=== PATIENT | male | born 1985 | race Caucasian/White ===

== ENCOUNTER 2019-11-01 14:47 | Observation (INO) | payer MEDICAID, SELFPAY ==
[2019-11-01] VITALS (13 sets, daily range): BP systolic 126–191; BP diastolic 77–117; PULSE 77–115; RESP 14–23; TEMP 36.4–37.1; O2SAT 92–100; BMI 30.1
[2019-11-01 17:22] LABS: Basophils # 0.2 10^3/uL (0.0-0.1); Basophils % 0.5 %; Eosinophils # 0.1 10^3/uL (0.0-0.8); Eosinophils % 0.4 %; Hematocrit 49.5 % (42.0-52.0); Hemoglobin 16.5 g/dL (11.7-16.6); Lymphocytes # 1.7 10^3/uL (0.8-4.8); Lymphocytes % 5.8 %; Mean Corpuscular HGB Conc 33.3 g/dL (30.0-36.0); Mean Corpuscular Hemoglobin 29.8 pg (28.0-34.0); Mean Corpuscular Volume 89.5 fL (80-94); Mean Platelet Volume 8.6 fL (7.4-10.4); Monocytes # 1.5 10^3/uL (0.2-0.9); Monocytes % 5.4 %; Neutrophils # 24.79 10^3/uL (1.8-7.7); Neutrophils % 87.3 %; Nucleated Red Blood Cells % 0 %; Platelet Count 420 10^3/cmm (130-400); Red Blood Count 5.53 10^6/uL (4.1-5.3); Red Cell Distribution Width 13.2 % (12.1-15.1); White Blood Count 28.4 10^3/uL (4.0-10.0)
[2019-11-01 17:40] LABS: Alanine Aminotransferase 25 U/L (0-41); Albumin Level 4.5 g/dL (3.5-5.2); Alkaline Phosphatase 72 IU/L (40-130); Anion Gap 17.2 (5-19); Aspartate Amino Transferase 38 U/L (0-40); Blood Urea Nitrogen 11 mg/dL (6-20); Calcium 9.4 mg/dL (8.5-10.5); Carbon Dioxide 25 mmol/L (22-29); Chloride 101 mmol/L (98-107); Globulin 3.2 g/dL (1.3-4.6); Glomerular Filtration Rate 98.4 mL/min (90-130); Glucose 130 mg/dL (65-115); Osmolality Calculated 286 mOsm/kg (285-295); Potassium 4.2 mmol/L (3.5-5.1); Sodium 139 mmol/L (136-145); Total Bilirubin 0.4 mg/dL (0.15-1.2); Total Protein 7.7 g/dL (6.6-8.7)
--- NOTE | 2019-11-01 18:13 | CTR_ITS ---
PROCEDURE INFORMATION: Exam: CT Abdomen And Pelvis Without Contrast Exam date and time: 11/01/2019 6:40 PM Age: 33 years old Clinical indication: Abdominal pain; Localized; Right lower quadrant (rlq); Patient HX: C/O rlq/r testicle pain w n/v; Additional info: Right flank pain TECHNIQUE: Imaging protocol: Computed tomography of the abdomen and pelvis without contrast. Radiation optimization: All CT scans at this facility use at least one of these dose optimization techniques: automated exposure control; mA and/or kV adjustment per patient size (includes targeted exams where dose is matched to clinical indication); or iterative reconstruction. COMPARISON: No relevant prior studies available. RADIATION DOSE METRICS: Total DLP (mGy-cm): 985.38 FINDINGS: Mediastinal space: A small hiatal hernia is present. Liver: Unremarkable.No mass. Gallbladder and bile ducts: Normal. No calcified stones. No ductal dilation. Pancreas: Normal. No ductal dilation. Spleen: Normal. No splenomegaly. Adrenals: Normal. No mass. Kidneys and ureters: There is no evidence of hydronephrosis. There is punctate nephrolithiasis. Stomach and bowel: There is no evidence of intestinal perforation or obstruction. The wall of the descending and sigmoid colon is thickened but collapsed. This appearance may reflect lack of distention however mild colitis cannot be excluded. Appendix: The appendix demonstrates marked diffuse distention, consistent with severe acute appendicitis. There are several appendicoliths. Periappendiceal inflammatory changes are noted. Intraperitoneal space: Unremarkable. No free air. No significant fluid collection. Vasculature: Unremarkable.No abdominal aortic aneurysm. Lymph nodes: Unremarkable.No enlarged lymph nodes. Bladder: Unremarkable as visualized. Reproductive: Unremarkable as visualized. Bones/joints: Chronic appearing mild anterior wedging of L2 is noted. No acute fracture. Soft tissues: Unremarkable. CT/CT kidney stone [id number] IMPRESSION: 1. Acute appendicitis. 2. The wall of the descending and sigmoid colon is thickened but collapsed. This appearance may reflect lack of distention however mild colitis cannot be excluded. Radiation Dose CTDIVOL = (mGy): DLP = 985.38 (mGy-cm)
--- NOTE | 2019-11-01 18:13 | USR_ITS ---
PROCEDURE INFORMATION: Exam: US Scrotum Exam date and time: 11/01/2019 6:27 PM Age: 33 years old Clinical indication: Scrotum pain; Additional info: Testicular pain and swelling. History of torsion- patient states he did not have surgery for torsion because it fixed on its own. TECHNIQUE: Imaging protocol: Real-time ultrasound of the scrotum and contents with color Doppler and image documentation. COMPARISON: No relevant prior studies available. FINDINGS: Right testicle: The right testicle is homogeneous in echogenicity but there is markedly increased color flow. The right testicle measures 4.7 x 2.7 x 3.3 cm. No right testicular mass. Left testicle: The left testicle measures 4.5 x 2.8 x 3.2 cm. The left testicle is homogeneous in echogenicity with increased color flow. No left testicular mass. Epididymides: There is a small area of decreased echogenicity with internal echoes in the right epididymis. This measures 6 x 6 x 5 mm in size and may be a proteinaceous epididymal cyst. There is mild increased echogenicity right epididymis compatible with right epididymitis. There is increased color flow left epididymis compatible with left epididymitis. Scrotum: There is a small right hydrocele. There is a small left hydrocele. No varicocele. US/US scrotum [id number] IMPRESSION: 1. Bilateral increased color flow/Doppler flow in both testicles compatible with bilateral orchitis. No torsion. Mild bilateral epididymitis. 2. Small bilateral hydroceles. 3. Hypoechoic area in the right epididymis may be a proteinaceous right epididymal cyst.
--- NOTE | 2019-11-01 18:55 | ED_ITS ---
HPI - Male Genitourinary General: Chief complaint: Urogenital-Male Stated complaint: abd pain Time Seen by Provider: 11/01/19 18:02 Source: patient and family () Mode of arrival: ambulatory Limitations: no limitations History of Present Illness: HPI Narrative: 33-year-old male prior history of testicular torsion presents with right testicular pain and swelling today. He has associated nausea. He presents today for evaluation. He denies any urinary symptoms MD Complaint: testicle pain and testicle swelling Onset (ago): hour(s) (6) Duration: constant and progressively worsening Location: right testicle Radiation: right flank Severity: severe Severity scale (1-10): 10 Quality: sharp Relieving factors: none Exacerbating factors: palpation Associated symptoms: Reports nausea; Deny discharge, dysuria, fevers/chills, hematuria, rash, swelling, urinary incontinence, urinary retention, mass or vomiting Review of Systems General: Reports: 10 or more systems reviewed and unremarkable except in HPI and below Const: Denies: fever(s), chills or body aches Eyes: Denies: change in vision or blurry vision ENMT: Denies: throat pain, enlarged tonsils, odynophagia, hoarseness, mouth pain or swelling of lips/tongue Card: Denies: palpitations, irregular heart rhythm, edema or swelling of feet/ankles Resp: Denies: dyspnea, productive cough or non-productive cough GI: Reports: nausea; Denies: vomiting : Reports: flank pain and testicular pain; Denies: difficulty urinating, dysuria, urinary frequency, urinary urgency, urinary hesitancy, urinary dribbling, difficulty starting urination, change in urine stream, nocturia, oliguria, urinary incontinence or hematuria Musc: Denies: neck pain, back pain or extremity swelling Skin/Breast: Denies: rash, pruritus or erythema Neuro: Denies: headache(s), numbness in extremities or weakness in extremities Endo: Denies: polyuria, polydipsia or tired all the time PFS ED PFSH: Medical History (Updated 11/01/19 @ 20:16 by Brian Peters MD) Anxiety and depression Hypertension Nephrolithiasis I passed 2 stones Surgical History (Updated 11/01/19 @ 20:18 by Brian Peters MD) No significant past surgical history Social History (Updated 11/01/19 @ 20:18 by Brian Peters MD) Smoking and tobacco status: current every day smoker cigarettes Packs smoked per day: 1 Years cigarettes smoked: 17 Alcohol intake: current Alcohol use comment: Occasionally Physical Exam Const: COMMON NORMALS: no acute distress, average body habitus, patient oriented x3, no limitations, healthy appearing, alert and well nourished HENMT: COMMON NORMALS: normocephalic, atraumatic and moist oral mucous membranes HEAD & SCALP: normocephalic and atraumatic Neck/C-Spine: COMMON NORMALS: no meningeal signs and no JVD Resp: COMMON NORMALS: normal respiratory effort, No retractions, No use of accessory muscles, clear to auscultation bilaterally and percussion normal AUSCULTATION: clear to auscultation bilaterally PERCUSSION: percussion normal Cardio: COMMON NORMALS: no JVD, regular rate, regular rhythm, S1 normal heart sound present, S2 normal heart sound present, No gallops present (Cardio), No clicks present (Cardio), No murmurs present (Cardio), No rub (Cardio) and Peripheral pulses 2+ throughout RATE: regular rate RHYTHM: regular rhythm HEART SOUNDS: S1 normal heart sound present and S2 normal heart sound present PERIPHERAL PULSES: Peripheral pulses 2+ throughout GI: COMMON NORMALS: Normal to inspection, nondistended, normoactive bowel sounds present, Soft to palpation, No hepatosplenomegaly present, no masses and no bruits PALPATION: Yes Soft to palpation, Yes Tenderness to palpation present (GI) Details: RLQ and Yes No hepatosplenomegaly present : COMMON NORMALS: Yes no CVA tenderness BLADDER/KIDNEY EXAM: Yes no CVA tenderness MALE GROIN/PERINEUM EXAM: No inguinal lymphadenopathy, No lacerations and No Genital lesions present PENIS: normal penis, circumcised and No Genital lesions present Back/Pelvis: COMMON NORMALS: no CVA tenderness Extremity: COMMON NORMALS: normal to inspection, full ROM, capillary refill normal, no calf tenderness and no pedal edema Neuro: COMMON NORMALS: patient oriented x3 SENSORIUM/ORIENTATION: Yes alert MENINGEAL SIGNS: Yes no meningeal signs Skin: COMMON NORMALS: no rashes or lesions noted, no wounds, turgor normal, no jaundice, no petechiae and no mottling GENERAL SKIN EXAM: no rashes or lesions noted and turgor normal Course Reevaluation(s): Reevaluation #1: Discussed his CT scan findings with him. He has acute appendicitis. With his white cell count being so high I think he needs urgent surgery. He voiced understanding and he is in agreement with the plan will call the surgeon Time: 19:30 Consultations: Consultation #1: Discussed with Dr. Peters. He will come in to see this patient. Time: 19:34 Vital Signs: Vital signs: Vital Signs Temperature 98.2 F 11/01/19 20:55 Pulse Rate 78 11/01/19 20:55 Respiratory Rate 17 11/01/19 20:55 Blood Pressure 140/99 11/01/19 20:55 Pulse Oximetry 100 11/01/19 20:55 MDM - Male MDM Narrative: Medical decision making narrative: 33-year-old male patient who presents to the emergency department with a several hour history of right lower abdominal and right scrotal pain. Ultrasound of his scrotum was negative but a CT scan of his abdomen and pelvis showed acute appendicitis. He was taking to the OR for an appendectomy. Medical Records: Attestation: I reviewed the patient's medical records. Lab Data: Attestation: I reviewed the patient's lab results. Labs: Lab Results 11/01/19 11/01/19 11/01/19 Range/Units 17:18 17:18 19:16 WBC 28.4 H (4.0-10.0) 10^3/ uL RBC 5.53 H (4.1-5.3) 10^6/u L Hgb 16.5 (11.7-16.6) g/dL Hct 49.5 (42.0-52.0) % MCV 89.5 (80-94) fL MCH 29.8 (28.0-34.0) pg MCHC 33.3 (30.0-36.0) g/dL RDW 13.2 (12.1-15.1) % Plt Count 420 H (130-400) 10^3/c mm MPV 8.6 (7.4-10.4) fL Neut % (Auto) 87.3 % Lymph % (Auto) 5.8 % [place] % (Auto) 5.4 % Eos % (Auto) 0.4 % Baso % (Auto) 0.5 % Neut # (Auto) 24.79 H (1.8-7.7) 10^3/u L Lymph # (Auto) 1.7 (0.8-4.8) 10^3/u L [place] # (Auto) 1.5 H (0.2-0.9) 10^3/u L Eos # (Auto) 0.1 (0.0-0.8) 10^3/u L Baso # (Auto) 0.2 H (0.0-0.1) 10^3/u L Nucleated RBC % (a uto) 0 % Nucleated RBCs # 0.0 /100WBC Sodium 139 (136-145) mmol/L Potassium 4.2 (3.5-5.1) mmol/L Chloride 101 (98-107) mmol/L Carbon Dioxide 25 (22-29) mmol/L Anion Gap 17.2 (5-19) BUN 11 (6-20) mg/dL Creatinine 0.9 (0.7-1.2) mg/dL GFR Calculation 98.4 (90-130) mL/min Glucose 130 H (65-115) mg/dL Calculated Osmolal ity 286 (285-295) mOsm/k g Lactic Acid 1.1 (0.5-2.2) mmol/L Calcium 9.4 (8.5-10.5) mg/dL Total Bilirubin 0.4 (0.15-1.2) mg/dL AST 38 (0-40) U/L ALT 25 (0-41) U/L Alkaline Phosphata se 72 (40-130) IU/L Total Protein 7.7 (6.6-8.7) g/dL Albumin 4.5 (3.5-5.2) g/dL Globulin 3.2 (1.3-4.6) g/dL Urine Color (Yellow) Urine Appearance (CLEAR) Urine pH (5-7) Ur Specific Gravit y (1.005-1.030) Urine Protein (Negative) Urine Glucose (UA) (Normal) Urine Ketones (Negative) Urine Blood (Negative) Urine Nitrate (Negative) Urine Bilirubin (NEGATIVE) Urine Urobilinogen (Negative) mg/dL Ur Leukocyte Kaela ase (Negative) Urine RBC (0-2) /hpf Urine WBC (0-5) /hpf Ur Squamous Epith Cells (0-5) Calcium Oxalate Cr ystal /hpf Amorphous Sediment Urine Bacteria (NONE) Hyaline Casts Urine Mucus 11/01/19 Range/Units 19:22 WBC (4.0-10.0) 10^3/ uL RBC (4.1-5.3) 10^6/u L Hgb (11.7-16.6) g/dL Hct (42.0-52.0) % MCV (80-94) fL MCH (28.0-34.0) pg MCHC (30.0-36.0) g/dL RDW (12.1-15.1) % Plt Count (130-400) 10^3/c mm MPV (7.4-10.4) fL Neut % (Auto) % Lymph % (Auto) % [place] % (Auto) % Eos % (Auto) % Baso % (Auto) % Neut # (Auto) (1.8-7.7) 10^3/u L Lymph # (Auto) (0.8-4.8) 10^3/u L [place] # (Auto) (0.2-0.9) 10^3/u L Eos # (Auto) (0.0-0.8) 10^3/u L Baso # (Auto) (0.0-0.1) 10^3/u L Nucleated RBC % (a uto) % Nucleated RBCs # /100WBC Sodium (136-145) mmol/L Potassium (3.5-5.1) mmol/L Chloride (98-107) mmol/L Carbon Dioxide (22-29) mmol/L Anion Gap (5-19) BUN (6-20) mg/dL Creatinine (0.7-1.2) mg/dL GFR Calculation (90-130) mL/min Glucose (65-115) mg/dL Calculated Osmolal ity (285-295) mOsm/k g Lactic Acid (0.5-2.2) mmol/L Calcium (8.5-10.5) mg/dL Total Bilirubin (0.15-1.2) mg/dL AST (0-40) U/L ALT (0-41) U/L Alkaline Phosphata se (40-130) IU/L Total Protein (6.6-8.7) g/dL Albumin (3.5-5.2) g/dL Globulin (1.3-4.6) g/dL Urine Color Yellow (Yellow) Urine Appearance Sl cloudy A (CLEAR) Urine pH 6.5 (5-7) Ur Specific Gravit y 1.020 (1.005-1.030) Urine Protein Neg (Negative) Urine Glucose (UA) Norm (Normal) Urine Ketones 3+ H (Negative) Urine Blood Neg (Negative) Urine Nitrate Negative (Negative) Urine Bilirubin 1+ H (NEGATIVE) Urine Urobilinogen 1 H (Negative) mg/dL Ur Leukocyte Kaela ase Negative (Negative) Urine RBC 0-4 H (0-2) /hpf Urine WBC 0-4 H (0-5) /hpf Ur Squamous Epith Cells 5-10 H (0-5) Calcium Oxalate Cr ystal Rare /hpf Amorphous Sediment 1+ Urine Bacteria 1+ H (NONE) Hyaline Casts Rare Urine Mucus 4+ Imaging Data: US: Radiologist's impression: [place] [address] Ultrasound Report Signed Patient: Bo Rubio #: [id number] : 1985Acct#:[id number] Age/Sex: 33 / MADM Date: 11/01/19 Loc: ERRoom/Bed: Attending Dr: Ordering Provider/Ordering MD: Carlene Leo MD, [facility] [place] Date of Service: 11/01/19 Procedure(s): US scrotum [id number] Accession Number(s): [id number] Report Number: [id number] PROCEDURE INFORMATION: Exam: US Scrotum Exam date and time: 11/01/2019 6:27 PM Age: 33 years old Clinical indication: Scrotum pain; Additional info: Testicular pain and swelling. History of torsion- patient states he did not have surgery for torsion because it fixed on its own. TECHNIQUE: Imaging protocol: Real-time ultrasound of the scrotum and contents with color Doppler and image documentation. COMPARISON: No relevant prior studies available. FINDINGS: Right testicle: The right testicle is homogeneous in echogenicity but there is markedly increased color flow. The right testicle measures 4.7 x 2.7 x 3.3 cm. No right testicular mass. Left testicle: The left testicle measures 4.5 x 2.8 x 3.2 cm. The left testicle is homogeneous in echogenicity with increased color flow. No left testicular mass. Epididymides: There is a small area of decreased echogenicity with internal echoes in the right epididymis. This measures 6 x 6 x 5 mm in size and may be a proteinaceous epididymal cyst. There is mild increased echogenicity right epididymis compatible with right epididymitis. There is increased color flow left epididymis compatible with left epididymitis. Scrotum: There is a small right hydrocele. There is a small left hydrocele. No varicocele. US/US scrotum [id number] IMPRESSION: 1. Bilateral increased color flow/Doppler flow in both testicles compatible with bilateral orchitis. No torsion. Mild bilateral epididymitis. 2. Small bilateral hydroceles. 3. Hypoechoic area in the right epididymis may be a proteinaceous right epididymal cyst. Dictated By:Vivi Madrid Signed By:Katalina Madrid Date/Time:11/01/191911 DD/ 10 CT Abd/Pel: Radiologist's impression: [address] [place] [address] CT Scan Report Signed with Yana Patient: Bo Rubio #: [id number] : 1985Acct#:[id number] Age/Sex: 33 / MADM Date: 11/01/19 Loc: ERRoom/Bed: Attending Dr: Ordering Provider/Ordering MD: Carlene eLo MD, [place] [facility] [place] Date of Service: 11/01/19 Procedure(s): CT kidney stone [id number] Accession Number(s): [id number] Report Number: [id number]/CT kidney stone 90791 THIS REPORT CONTAINS FINDINGS THAT MAY BE CRITICAL TO PATIENT CARE. The findings were verbally communicated via telephone conference with CARLENE LEO at 7:55 PM CDT on 11/01/2019. The findings were acknowledged and understood. Radiation Dose CTDIVOL = (mGy): DLP = 985.38 (mGy-cm) Addendum Dictated By: Vivi Madrid Addendum Signed By: Katalina Madrid Date/Time:11/01/191955 Addendum Cosigned By: PROCEDURE INFORMATION: Exam: CT Abdomen And Pelvis Without Contrast Exam date and time: 11/01/2019 6:40 PM Age: 33 years old Clinical indication: Abdominal pain; Localized; Right lower quadrant (rlq); Patient HX: C/O rlq/r testicle pain w n/v; Additional info: Right flank pain TECHNIQUE: Imaging protocol: Computed tomography of the abdomen and pelvis without contrast. Radiation optimization: All CT scans at this facility use at least one of these dose optimization techniques: automated exposure control; mA and/or kV adjustment per patient size (includes targeted exams where dose is matched to clinical indication); or iterative reconstruction. COMPARISON: No relevant prior studies available. RADIATION DOSE METRICS: Total DLP (mGy-cm): 985.38 FINDINGS: Mediastinal space: A small hiatal hernia is present. Liver: Unremarkable.No mass. Gallbladder and bile ducts: Normal. No calcified stones. No ductal dilation. Pancreas: Normal. No ductal dilation. Spleen: Normal. No splenomegaly. Adrenals: Normal. No mass. Kidneys and ureters: There is no evidence of hydronephrosis. There is punctate nephrolithiasis. Stomach and bowel: There is no evidence of intestinal perforation or obstruction. The wall of the descending and sigmoid colon is thickened but collapsed. This appearance may reflect lack of distention however mild colitis cannot be excluded. Appendix: The appendix demonstrates marked diffuse distention, consistent with severe acute appendicitis. There are several appendicoliths. Periappendiceal inflammatory changes are noted. Intraperitoneal space: Unremarkable. No free air. No significant fluid collection. Vasculature: Unremarkable.No abdominal aortic aneurysm. Lymph nodes: Unremarkable.No enlarged lymph nodes. Bladder: Unremarkable as visualized. Reproductive: Unremarkable as visualized. Bones/joints: Chronic appearing mild anterior wedging of L2 is noted. No acute fracture. Soft tissues: Unremarkable. CT/CT kidney stone [id number] IMPRESSION: 1. Acute appendicitis. 2. The wall of the descending and sigmoid colon is thickened but collapsed. This appearance may reflect lack of distention however mild colitis cannot be excluded. Radiation Dose CTDIVOL = (mGy): DLP = 985.38 (mGy-cm) Dictated By:Vivi Madrid Signed By:Katalina Madrid Date/Time:11/01/191918 DD/ 17 Discharge Plan Discharge Admit Provider: Brian Peters Coding Level of Care Code ED Snath Handle Assembler for Chg Fwd Exam Comprehensive
[2019-11-01] MEDS: morphine 4 mg/mL SDV 1 mL IVP (19:43)
[2019-11-01] MEDS: ondansetron 2 mg/ML SDV 2 mL 4 MG IVP (19:44)
[2019-11-01 19:46] LABS: Lactic Sepsis W/Reflex 1.1 mmol/L (0.5-2.2)
--- NOTE | 2019-11-01 19:54 | P.HP_ITS ---
Providers/Chief Complaint Admitting Physician: General Surgery Brian Peters MD Chief Complaint: abd pain History of Present Illness Bo Rubio is a 33 year old male who awoke this morning with some right lower quadrant abdominal discomfort. The pain intensified and eventually he felt a little bit of right testicular discomfort, as well. He had multiple episodes of vomiting but no evidence of hematemesis. His bowel habits have been normal. He denies any fevers or chills. He came to the emergency room and a CAT scan showed changes consistent with acute appendicitis. He underwent a scrotal ultrasound first, because he apparently had an episode of temporary right testicular torsion in the past, but his ultrasound today was essentially normal. Review of Systems General: Reports: 10 or more systems reviewed and unremarkable except in HPI and below Const: Denies: fever(s) Resp: Reports: other (Occasional sinus drainage) GI: Reports: abdominal pain, nausea and vomiting; Denies: change in bowel habits or hematochezia Musc: Reports: back pain ( I fractured my lower back when I was younger but it did not require any procedures ) Psych: Reports: anxiety and depression Medications/Allergies Allergies Allergy/AdvReac Type Severity Reaction Status Date / Time cephalexin Allergy Nausea, Verified 11/01/19 20:20 turned red (penicillins are okay) PFSH Acute PFSH: Medical History (Updated 11/01/19 @ 20:16 by Brian Peters MD) Anxiety and depression Hypertension Nephrolithiasis I passed 2 stones Surgical History (Updated 11/01/19 @ 20:18 by Brian Peters MD) No significant past surgical history Social History (Updated 11/01/19 @ 20:18 by Brian Peters MD) Smoking and tobacco status: current every day smoker cigarettes Packs smoked per day: 1 Years cigarettes smoked: 17 Alcohol intake: current Alcohol use comment: Occasionally Vitals/I&O/Wt Last Vital Signs Temp 97.6 F 11/01/19 15:10 Pulse 92 11/01/19 19:46 Resp 17 11/01/19 19:46 BP 147/86 11/01/19 19:46 Pulse Ox 98 11/01/19 19:46 Weight last 48 hrs Weight 170 lb Physical Exam Narrative: EXAM NARRATIVE: The patient was encountered in his room in the emergency department. He does not appear to be in any acute distress. The pupils are equal. No carotid bruits are heard. The lungs are clear anteriorly. The heart is regular but the patient may be borderline tachycardic. The abdomen reveals infrequent bowel sounds. His maximum point of tenderness is over McBurney's point in the right lower quadrant and does exhibit some percussion tenderness. Rovsing's sign is positive. No obvious masses are palpated. The extremities reveal no edema. Neurologically the patient appears to be grossly intact. Data : 11/01/19 17:18 11/01/19 17:18 Micro: Microbiology 11/01/19 19:16 Blood Culture - Preliminary Blood SPECIMEN COLLECTED 11/01/19 19:20 Blood Culture - Preliminary Blood SPECIMEN COLLECTED CT Abd/Pel: Radiologist's impression: CT scan abdomen/pelvis 11/01/2019 iMPRESSION: 1. Acute appendicitis. 2. The wall of the descending and sigmoid colon is thickened but collapsed. This appearance may reflect lack of distention however mild colitis cannot be excluded. US: Radiologist's impression: Scrotal ultrasound 11/01/2019 iMPRESSION: 1. Bilateral increased color flow/Doppler flow in both testicles compatible with bilateral orchitis. No torsion. Mild bilateral epididymitis. 2. Small bilateral hydroceles. 3. Hypoechoic area in the right epididymis may be a proteinaceous right epididymal cyst. A&P Assessment and plan (1) Acute appendicitis: CT reviewed. I agree with the assessment of acute appendicitis. The patient's white blood cell count is impressively high, but I agree there is no evidence of perforation, etc. I discussed appendicitis with the patient in some detail. Both conservative and surgical methods of management were gone over. Surgical risks including bleeding, infection, internal organ injury, etc. were all discussed. The patient seems to understand and would like to proceed with an appendectomy. The patient last had solid food around 11 AM this morning. We will proceed to the operating room tonight for a laparoscopic or possibly open appendectomy. Status: Acute Attestations Medical Necessity Statement*: Based on my medical assessment, presenting symptoms and consideration of the scope of surgical therapy, I expect this patient will require treatment in the hospital for a period of time spanning less than 2 midnights, and is therefore being placed in observation status. Coding Level of Care Code Acute County Tax Ass[employer]or for [facility] Delia Diagnoses Acute appendicitis K35.80
[2019-11-01 20:05] LABS: Add Urine Microscopic? YES; Bilirubin Urine 1+ (NEGATIVE); Blood Urine Neg (Negative); Glucose Urine UA Norm (Normal); Ketones Urine 3+ (Negative); Leukocyte Esterase Urine Negative (Negative); Nitrate Urine Negative (Negative); Protein Urine Neg (Negative); Urine Color Yellow (Yellow); Urobilinogen Urine 1 mg/dL (Negative); pH Urine 6.5 (5-7)
[2019-11-01 20:07] LABS: Add Urine Culture? No; Amorphous Sediment Urine 1+; Bacteria Urine 1+; Calcium Oxalate Crystals Urine RARE /hpf; Hyaline Casts Urine RARE; Mucus Urine 4+; RBC Urine 0-4 /hpf (0-2); WBC Urine 0-4 /hpf (0-5)
--- NOTE | 2019-11-01 20:43 | P.ANESASSM_ITS ---
Pre-Anesthetic Assessment Pre-Anesthetic Assessment: Height/Weight: Height 1.6 m Weight 77.111 kg Temp Pulse Resp BP Pulse Ox 97.6 F 92 17 147/86 98 11/01/19 15:10 11/01/19 19:46 11/01/19 19:46 11/01/19 19:46 11/01/19 19:46 Preop Diagnosis: acute appendicitis Proposed Procedure: Operation Date: 11/01/19 20:30 Proposed Procedures p Laparoscopic Appendectomy(Not Applicable) - Brian Peters MD Familial anesthetic complications: none (no personal hx of anesthesia) Was Beta Flaquito taken within 24 hours: N/A Last intake: Intake Last Liquid Date 11/01/19 Last Liquid Time 15:00 (gatorade) Last Solid Date 11/01/19 Last Solid Time 11:00 Social: Social History: Tobacco Exam: Pre-Anes Outpt Exam: alert, oriented x 3, clear to auscultation bilate rally and regular rate & rhythm Airway: Cervical ROM: WNL MP: 1 Dentition: Chipped and Other (missing) CV/HEM: CV/HEM: HTN (Believes he takes hydrochlorothiazide) Anesthetic Plan: ASA status: 1E Anesthesia: General Risk of > 500 ml blood loss (7ml/kg in children): No PFSH Anesthesia PFSH: Medical History (Updated 11/01/19 @ 20:16 by Brian Peters MD) Anxiety and depression Hypertension Nephrolithiasis I passed 2 stones Surgical History (Updated 11/01/19 @ 20:18 by Brian Peters MD) No significant past surgical history Social History (Updated 11/01/19 @ 20:18 by Brian Peters MD) Smoking and tobacco status: current every day smoker cigarettes Packs smoked per day: 1 Years cigarettes smoked: 17 Alcohol intake: current Alcohol use comment: Occasionally Data Anesthesia CBC & Chem 7: 11/01/19 17:18 11/01/19 17:18 Other Labs: Laboratory Results - last 48 hr 11/01/19 11/01/19 11/01/19 17:18 17:18 19:16 WBC 28.4 H RBC 5.53 H Hgb 16.5 Hct 49.5 MCV 89.5 MCH 29.8 MCHC 33.3 RDW 13.2 Plt Count 420 H MPV 8.6 Neut % (Auto) 87.3 Lymph % (Auto) 5.8 [place] % (Auto) 5.4 Eos % (Auto) 0.4 Baso % (Auto) 0.5 Neut # (Auto) 24.79 H Lymph # (Auto) 1.7 [place] # (Auto) 1.5 H Eos # (Auto) 0.1 Baso # (Auto) 0.2 H Nucleated RBC % (auto) 0 Nucleated RBCs # 0.0 Sodium 139 Potassium 4.2 Chloride 101 Carbon Dioxide 25 Anion Gap 17.2 BUN 11 Creatinine 0.9 GFR Calculation 98.4 Glucose 130 H Calculated Osmolality 286 Lactic Acid 1.1 Calcium 9.4 Total Bilirubin 0.4 AST 38 ALT 25 Alkaline Phosphatase 72 Total Protein 7.7 Albumin 4.5 Globulin 3.2 Urine Color Urine Appearance Urine pH Ur Specific [place] Urine Protein Urine Glucose (UA) Urine Ketones Urine Blood Urine Nitrate Urine Bilirubin Urine Urobilinogen Ur Leukocyte Esterase Urine RBC Urine WBC Ur Squamous Epith Cells Calcium Oxalate Crystal Amorphous Sediment Urine Bacteria Hyaline Casts Urine Mucus 11/01/19 19:22 WBC RBC Hgb Hct MCV MCH MCHC RDW Plt Count MPV Neut % (Auto) Lymph % (Auto) [place] % (Auto) Eos % (Auto) Baso % (Auto) Neut # (Auto) Lymph # (Auto) [place] # (Auto) Eos # (Auto) Baso # (Auto) Nucleated RBC % (auto) Nucleated RBCs # Sodium Potassium Chloride Carbon Dioxide Anion Gap BUN Creatinine GFR Calculation Glucose Calculated Osmolality Lactic Acid Calcium Total Bilirubin AST ALT Alkaline Phosphatase Total Protein Albumin Globulin Urine Color Yellow Urine Appearance Sl cloudy A Urine pH 6.5 Ur Specific [place] 1.020 Urine Protein Neg Urine Glucose (UA) Norm Urine Ketones 3+ H Urine Blood Neg Urine Nitrate Negative Urine Bilirubin 1+ H Urine Urobilinogen 1 H Ur Leukocyte Esterase Negative Urine RBC 0-4 H Urine WBC 0-4 H Ur Squamous Epith Cells 5-10 H Calcium Oxalate Crystal Rare Amorphous Sediment 1+ Urine Bacteria 1+ H Hyaline Casts Rare Urine Mucus 4+ Micro: Microbiology 11/01/19 19:16 Blood Culture - Preliminary Blood SPECIMEN COLLECTED 11/01/19 19:20 Blood Culture - Preliminary Blood SPECIMEN COLLECTED Cardiac Studies: No Data to Display
[2019-11-01] MEDS: sodium chloride 0.9% 1,000 ML 30 ML IV (21:00)
[2019-11-01] MEDS: piperacillin-tazobactam 3.375 GM in sodium chloride 0.9% (plus) 50 ML IV (21:00)
--- NOTE | 2019-11-01 21:41 | P.OP_ITS ---
Operative Report Date of procedure: November 01, 2019 Pre-op Diagnosis: Acute appendicitis. Post-op diagnosis: same Procedure Done: Laparoscopic appendectomy. Specimens removed/disposition: Appendix. Surgeon: Brian Peters Anesthesia: General Estimated blood loss (mL): 5 Complications: None. Condition: stable Disposition: PACU Procedure: The patient was brought to the Operating Room and was placed in a supine position on the operating room table. General endotracheal anesthesia was induced. The abdomen was prepped and draped in a sterile fashion. A small vertical incision was carried out in the superior aspect of the umbilicus. Blunt dissection was carried out down to the fascia, which was grasped with a Enzo clamp. A stay suture of 0 Vicryl was placed on either side of the midline and the midline fascia was incised. The underlying peritoneum was opened bluntly and the Pa port was placed directly into the peritoneal cavity and was held in place with the inflatable balloon. The peritoneal cavity was insufflated with carbon dioxide. The laparoscope was used to inspect the peritoneal cavity. No gross abnormalities were initially noted. Two 5-millimeter ports were placed in the left lower quadrant under direct vision. The patient was tilted in a Trendelenburg position and slightly to the left side. A laparoscopic [place] was used to elevate the cecum and the appendix was identified. The appendix was dilated throughout its length and had a small amount of purulent exudate on its surface, but no evidence of gross perforation was noted. The appendix was edematous and was freed using blunt dissection and was then elevated. The mesoappendix was divided using cautery to maintain hemostasis at the base of the appendix. The base of the appendix appeared healthy and was divided using an endoscopic stapler. The appendix was removed from the peritoneal cavity after being placed in a laparoscopic bag. The right lower quadrant and pelvis were irrigated. The staple line on the cecum was identified and appeared to be in good condition. The Pa port was removed from the umbilical site and the stay sutures of Vicryl were tied to each other at the umbilicus. An additional [id number] suture of 0 Vicryl was placed, closing the fascial defect so that it was airtight. A final round of irrigation was carried out in the right lower quadrant and the pelvis. No ongoing problems were seen. The remaining ports were removed from the abdominal wall as the pneumoperitoneum was evacuated. All skin incisions were closed using inverted interrupted sutures of 4-0 Vicryl. Benzoin and Steri-Strips were placed over the incisions and Band- Aids followed. The patient was taken to the Recovery Room in stable condition postoperatively.
--- NOTE | 2019-11-01 21:54 | SUR.PHASEI ---
4999 PATIENT TO PACU FROM OR. RR EVEN AND UNLABORED. PATIENT ANXIOUS, RESTLESS IN BED. C/O SHOULDER PAIN. 3 INCISIONS TO ABDOMEN, CDI.
[2019-11-01] MEDS: fentaNYL 50 mcg/mL INJ 2mL IVP (21:57)
--- NOTE | 2019-11-01 22:02 | ANE.PACU2 ---
Inpatient post-anesthesia follow up: Airway intact: Yes Vital signs: Temperature 98.8 F Pulse Rate [Monito r] 96 Pulse Rate 77 Respiratory Rate 18 Blood Pressure [Le ft Arm] 161/110 Blood Pressure 160/117 Pulse Oximetry 92 Oxygen Delivery Me thod Room Air Oxygen Flow Rate 8 Fraction of Inspir ed Oxygen Hydration adequate: Yes Nausea and vomiting: No Pain level: 5 Pain level: shoulder pain Mental status: Altered (extremely agitated) Additional Comments: Patient woke up extremely agitated and aggressive, patient given 2 mg of versed and fentanyl for pain. Resting comfortably at this time.
[2019-11-01] MEDS: labetalol 5 mg/mL SDV 20mL IVP ×2 (22:05→22:12)
--- NOTE | 2019-11-01 22:30 | SUR.PHASEI ---
2210 PATIENT TO MED SURG. PAIN IMPROVED. RESTING ON GURNEY. RR EVEN AND UNLABORED. 3 INCISIONS TO ABDOMEN, CDI. PATIENT AMBULATORY FROM [place] TO BED ON MED SURG WITH STEADY GAIT.
[2019-11-01] MEDS: ciprofloxacin 400 MG/200 ML PREMIX 200 MG IV (22:34)
[2019-11-01] MEDS: D5-NS 0.45% + KCL 20 mEq 20 MEQ/1,000 ML BAG 100 MEQ IV (22:35)
[2019-11-01] MEDS: famotidine 20 mg/2 mL INJ IVP (22:42)
[2019-11-01] MEDS: heparin 5,000 unit/mL INJ 1 mL 5000 UNIT SUBCUT (22:42)
[2019-11-02] MEDS: metroNIDAZOLE IV 500 MG/100 ML PREMIX 100 MG IV ×2 (00:36→08:06)
[2019-11-02 00:43] VITALS: BP 121/82; PULSE 85; RESP 18; TEMP 36.4; O2SAT 98
[2019-11-02 05:33] VITALS: BP 107/65; PULSE 90; RESP 18; TEMP 36.6; O2SAT 99
[2019-11-02 05:45] LABS: Basophils % 0.2 %; Hematocrit 44.2 % (42.0-52.0); Hemoglobin 14.3 g/dL (11.7-16.6); Lymphocytes % 5.2 %; Mean Corpuscular HGB Conc 32.4 g/dL (30.0-36.0); Mean Corpuscular Volume 89.7 fL (80-94); Mean Platelet Volume 8.9 fL (7.4-10.4); Monocytes # 0.5 10^3/uL (0.2-0.9); Monocytes % 2.8 %; Neutrophils # 17.88 10^3/uL (1.8-7.7); Neutrophils % 91.4 %; Nucleated Red Blood Cells % 0 %; Platelet Count 365 10^3/cmm (130-400); Red Blood Count 4.93 10^6/uL (4.1-5.3); Red Cell Distribution Width 13.3 % (12.1-15.1); White Blood Count 19.5 10^3/uL (4.0-10.0)
[2019-11-02 06:05] LABS: Anion Gap 13.2 (5-19); Blood Urea Nitrogen 9 mg/dL (6-20); Calcium 8.6 mg/dL (8.5-10.5); Carbon Dioxide 22 mmol/L (22-29); Chloride 103 mmol/L (98-107); Glomerular Filtration Rate 112.8 mL/min (90-130); Glucose 186 mg/dL (65-115); Osmolality Calculated 279 mOsm/kg (285-295); Potassium 4.2 mmol/L (3.5-5.1); Sodium 134 mmol/L (136-145)
[2019-11-02 07:56] VITALS: BP 146/87; PULSE 69; RESP 16; TEMP 36.5; O2SAT 98
[2019-11-02] MEDS: D5-NS 0.45% + KCL 20 mEq 20 MEQ/1,000 ML BAG 100 MEQ IV (08:06)
[2019-11-02 08:13] VITALS: BP 122/77; PULSE 62; RESP 16; O2SAT 95
--- NOTE | 2019-11-02 09:15 | P.DS_ITS ---
Discharge Providers Date of Admission: 11/01/19 21:10 Date of Discharge: November 02, 2019 Attending Provider at Admission: Brian Peters MD Attending Provider at Discharge: Brian Peters MD Diagnoses at Discharge Discharge Diagnosis (1) Acute appendicitis: Status: Acute Reason for Visit Reason for Visit: abd pain Hospital Course Discharge Summary: This is a 33-year-old white male who presented to the emergency department after developing right lower quadrant abdominal pain earlier in the day. A CAT scan showed evidence of acute appendicitis. He underwent a laparoscopic appendectomy on the same day. By the following morning he was already feeling better. He was tolerating an oral diet. All of his incisions looked good. He indicated that he was anxious to go home. The patient's white blood cell count was 28,000 on presentation. He had no gross evidence of appendiceal perforation at the time of surgery. His white blood cell count had partially defervesced and was 19,000 the following morning. Given the elevation, I did elect to send him home on 5 more days of oral antibiotics. He was instructed with respect to wound care, diet, activity limitations, etc. Arrangements will be made for the patient to follow-up with me in my office as an outpatient. Physical Exam Narrative: EXAM NARRATIVE: Patient is afebrile. Vital signs are stable. Abdomen reveals good bowel sounds. All of the laparoscopic incisions look good. Urinary Catheter Management^: [place] Latex: Cath Placed During This Visit: yes, but has since been removed by the nurse Date Urinary Catheter Removed: 11/01/19 Time Urinary Catheter Discontinued: 21:31 Discharge Data Data Completed and Pending: Completed Studies During Hospitalization Category Date Time Status CT kidney stone 7 [id number] Urgent Cat Scan 11/01/19 18:13 Completed US scrotum [id number] Urgent Ultrasound 11/01/19 18:13 Completed Pending at discharge Category Date Time Status Blood Culture Sta t Lab 11/01/19 19:16 Results Chlamydia / Gonor osito Panel Stat Lab 11/01/19 19:22 Received Pathology: Surgic al [PTH] Routine Pth 11/01/19 21:25 Ordered Labs from last 24 hours 11/02/19 11/02/19 11/01/19 05:36 05:36 19:22 WBC 19.5 H RBC 4.93 Hgb 14.3 Hct 44.2 MCV 89.7 MCH 29.0 MCHC 32.4 RDW 13.3 Plt Count 365 MPV 8.9 Neut % (Auto) 91.4 Lymph % (Auto) 5.2 [place] % (Auto) 2.8 Eos % (Auto) 0.0 Baso % (Auto) 0.2 Neut # (Auto) 17.88 H Lymph # (Auto) 1.0 [place] # (Auto) 0.5 Eos # (Auto) 0.0 Baso # (Auto) 0.0 Nucleated RBC % (a uto) 0 Nucleated RBCs # 0.0 Sodium 134 L Potassium 4.2 Chloride 103 Carbon Dioxide 22 Anion Gap 13.2 BUN 9 Creatinine 0.8 GFR Calculation 112.8 Glucose 186 H Calculated Osmolal ity 279 L Lactic Acid Calcium 8.6 Total Bilirubin AST ALT Alkaline Phosphata se Total Protein Albumin Globulin Urine Color Yellow Urine Appearance Sl cloudy A Urine pH 6.5 Ur Specific [place] y 1.020 Urine Protein Neg Urine Glucose (UA) Norm Urine Ketones 3+ H Urine Blood Neg Urine Nitrate Negative Urine Bilirubin 1+ H Urine Urobilinogen 1 H Ur Leukocyte Kaela ase Negative Urine RBC 0-4 H Urine WBC 0-4 H Ur Squamous Epith Cells 5-10 H Calcium Oxalate Cr ystal Rare Amorphous Sediment 1+ Urine Bacteria 1+ H Hyaline Casts Rare Urine Mucus 4+ 11/01/19 11/01/19 11/01/19 19:16 17:18 17:18 WBC 28.4 H RBC 5.53 H Hgb 16.5 Hct 49.5 MCV 89.5 MCH 29.8 MCHC 33.3 RDW 13.2 Plt Count 420 H MPV 8.6 Neut % (Auto) 87.3 Lymph % (Auto) 5.8 [place] % (Auto) 5.4 Eos % (Auto) 0.4 Baso % (Auto) 0.5 Neut # (Auto) 24.79 H Lymph # (Auto) 1.7 [place] # (Auto) 1.5 H Eos # (Auto) 0.1 Baso # (Auto) 0.2 H Nucleated RBC % (a uto) 0 Nucleated RBCs # 0.0 Sodium 139 Potassium 4.2 Chloride 101 Carbon Dioxide 25 Anion Gap 17.2 BUN 11 Creatinine 0.9 GFR Calculation 98.4 Glucose 130 H Calculated Osmolal ity 286 Lactic Acid 1.1 Calcium 9.4 Total Bilirubin 0.4 AST 38 ALT 25 Alkaline Phosphata se 72 Total Protein 7.7 Albumin 4.5 Globulin 3.2 Urine Color Urine Appearance Urine pH Ur Specific [place] y Urine Protein Urine Glucose (UA) Urine Ketones Urine Blood Urine Nitrate Urine Bilirubin Urine Urobilinogen Ur Leukocyte Kaela ase Urine RBC Urine WBC Ur Squamous Epith Cells Calcium Oxalate Cr ystal Amorphous Sediment Urine Bacteria Hyaline Casts Urine Mucus Vitals: Last Vital Signs Temp 97.7 F 11/02/19 07:56 Pulse 62 11/02/19 08:13 Resp 16 11/02/19 08:13 BP 122/77 11/02/19 08:13 Pulse Ox 95 11/02/19 08:13 Discharge Plan Discharge Patient Disposition: Home Condition: Stable Prescriptions: New hydrocodone-acetaminophen 5-325 mg tablet 1 - 2 tab PO Q5H PRN (Reason: pain) Qty: 30 RF: 0 ciprofloxacin HCl 500 mg tablet 500 mg PO BID Qty: 10 RF: 0 metronidazole 500 mg tablet 500 mg PO TID Qty: 15 RF: 0 Discharge Orders: Discharge Order (Routine); Ordered 11/02/19 Ordered By: Brian Peters Referrals: Brian Peters MD [Physician] - 2 weeks (Nursing: Please have the patient / family call Dr. Peters's office on Sunday ([phone]) and make an appointment for the patient to be seen in 7-10 days.) Discharge Diet: Advance as tolerated Discharge Activity: Limit activity as instructed Activity Restrictions/Additional Instructions: 1. Discharge to home today. 2. Appointment to see Dr. Peters in 10-14 days as above. 3. Bandages / bandaids off later today, leave Steri-Strip(s) on, may shower. 4. [place] 5/325 1-2 tablets by mouth every 5 hours as needed for pain. #30, no refills. 5. Ciprofloxacin 500 mg p.o. twice daily until gone. #10, no refills. 6. Metronidazole 500 mg p.o. 3 times daily until gone. #15, no refills. Discharge Attestations Time Spent in Discharge Care*: less than 30 min Quality Metrics Clinical Quality Measures During this hospital stay, did patient experience: None Coding Level of Care Code Acute Sales Development Associate for [facility] Delia Diagnoses Acute appendicitis K35.80
[2019-11-02 09:30] VITALS: BP 122/77; PULSE 62; RESP 16; TEMP 36.9; O2SAT 95
[2019-11-02 10:06] VITALS: BP 122/77; PULSE 62; RESP 16; TEMP 36.9; O2SAT 95
--- NOTE | 2019-11-03 12:10 | PC.RESP ---
Smoking Cessation information sent to patient.
== END 2019-11-02 10:00 | disposition home or self-care (01) ==
LOC: ER 18:02 → OR 20:36 → MEDSURG 21:13
PROVIDERS: Family Medicine; Admitting Provider Surgery; Visit Provider Surgery
PROC: 0DTJ4ZZ Resection of Appendix, Percutaneous Endoscopic Approach (ICD-10-PCS; CPT 44970; principal; 2019-11-01 20:30)
DX: K35.80 Unspecified acute appendicitis (principal); N43.3 Hydrocele, unspecified; I10 Essential (primary) hypertension; F17.210 Nicotine dependence, cigarettes, uncomplicated
CPT/HCPCS: 44970; 12345; 36415; 74176; 76870; 80048; 80053; 81001; 83605; 85025; 87040; 87491; 87591; 88304; 96361; 96365; 96366; 96367; 96372; 96375; 96376; 99283; 99285; G0378; J0330; J0690; J0744; J1100; J1644; J2250; J2270; J2405; J2543; J2704; J2710; J3010; J3490; J7030; S0030

== ENCOUNTER 2019-11-19 12:03 | Outpatient (CLI) | payer MEDICAID, SELFPAY ==
--- NOTE | 2019-11-19 15:59 | ONC CON_ITS ---
Dr. Lozoya New Patient Note Patient: Bo Rubio Unit #: [id number]: 1985 Dicatated By: Hunter Lozoya M.D.Date of Visit: Nov 19, 2019 Onc MED New Patient/Consult Referring Physician: Dr. Brian Peters M.D. History of Present Illness: Mr. Bo Rubio, is a 33-year-old gentleman with history of renal stone and as per patient twisted 'nut' meant testicle torsion on November 01, 2019 morning woke up with right lower quadrant pain which was radiating to right testicle subsequently developed nausea and vomiting eventually went to emergency room and where he was diagnosed with appendicitis based on leukocytosis and CT scan of abdomen pelvis done on November 01, 2019 showed acute appendicitis as it showed marked diffuse distention with several appendicoliths and manuel-appendiceal inflammatory changes. 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 Patient tolerated procedure well Past Medical History: Mr. Rubio's medical history consists of anxiety, hypertension, renal calculi, and type II diabetes. Past Surgical History: Mr. Rubio's surgical/procedural history consists of appendectomy in 2019. Medications: Chlorthalidone 1 Tablet (of 25 mg) Oral daily, FLUoxetine HCl 1 Capsule (of 40 mg) Oral daily Allergies: Cephalexin Social History: Mr. Rubio is and he is an unknown. He is a daily smoker who has smoked 1.0 pack/day for 17 years. He drinks occasionally. He has indicated exposure to the following products: cigarettes. pt states he drinks 4 beers once or twice a month. Family History: Mr. Rubio's mother is alive: bipolar, and depression, and anxiety. Mr. Rubio's father is alive: hypertension, and anxiety. Review Of Symptoms: Review of Systems is not available for this patient. Vital Signs: Performed on Nov 19, 2019 13:09: 2, 30.61 (HIGH), 1.82 sq.m, 63.00 in, 97 %, 75 /min, 24 /min, 144/87 mm(hg) (HIGH), 97.8 F (LOW), and 172.8 lbs (HIGH). Performance Status: 0 - Fully active, able to carry on all predisease activities without restrictions. (ECOG) Physical Examination: ENMT - No mouth sores, no thrush, no jaundice, Respiratory - Lungs are clear, Cardiovascular - Regular rate and rhythm of heart, Abdomen - Soft, bowel sounds present, well-healed laparoscopic surgical, Extremities - No visible edema or rash. Lab/Imaging: Most recent lab results are not available for this patient. 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 done on November 01, 2019 final pathology report showed moderately to poorly differentiated tumor with lymphovascular/perineural invasion and proximal and circumferential margins involved., No lymph node identified/submitted pT3,Nx History of renal stones Plan: Discussed with patient regarding his disease status and treatment options, case was also discussed with pathologist, and as per pathologist , it is a high-grade, extremely rare tumor with positive surgical margins both proximal and circumferential, and lymphovascular and perineural invasion seen which make him high risk for recurrence and may benefit from further surgery e.g. right hemicolectomy. Discussed with Dr. Peters, surgeon and patient and his , patient opted for second opinion at tertiary care center, will refer him to [facility] GI oncology clinic for evaluation and for clinical trial if available. Patient will return to clinic 1 week after his visit to [place]. Signed By: Hunter Lozoya M.D. <<Signature on File>>
== END 2019-11-19 12:04 | disposition home or self-care (01) ==
LOC: ONCMED 12:06
PROVIDERS: Visit Provider Internal Medicine Hematology & Oncology
DX: C18.1 Malignant neoplasm of appendix (principal); Z87.442 Personal history of urinary calculi
CPT/HCPCS: 99203

== ENCOUNTER 2019-12-10 09:21 | Outpatient (CLI) | payer MEDICAID, SELFPAY ==
--- NOTE | 2019-12-10 | CT_ITS ---
WS: [id number] CT CHEST, ABDOMEN AND PELVIS WITH CONTRAST HISTORY: GOBLET CELL CARCINOID TECHNIQUE: Contiguous 5 mm axial imaging performed through the chest, abdomen and pelvis with IV cont rast, oral contrast has been provided. Coronal and sagittal reformats chest. Coronal and sagittal ref ormats through the abdomen and pelvis. All CT scans at [facility] use at least one of the se dose optimization techniques: automated exposure control; mA and/or kV adjustment per patient size (includes targeted exams where dose is matched to clinical indication); or iterative reconstruction. CONTRAST: Omnipaque 300; 95 mL IV. DLP: 2265.04 mGycm COMPARISON: 11/01/[address]: No pulmonary nodules or pneumonia. There are a few scattered granulomata. Heart is normal s ize. No adenopathy is identified. No pericardial or pleural effusions. Visualized thyroid gland is ne gative. No axillary adenopathy. Small hiatal hernia. Abdomen CT: No metastatic disease to the liver or adrenal glands. Spleen and pancreas are negative. N ormal gallbladder. 1.6 cm LEFT renal cyst. There are a few small scattered hypodensities in the RIGHT kidney which are too small to characterize. Normal aorta. No ascites or adenopathy. Scarring at the umbilicus. Prior appendectomy. No recurrent mass or adenopathy in the RIGHT lower quadrant. Mild diffuse constip ation. Increased density in the distal colon may be medicinal. Pelvic CT: No free fluid in the pelvis. Urinary bladder is normally distended. Mild anterior wedging of L2 is stable. No osteoblastic or osteolytic bone disease. CT/CT chest abd pel w con* IMPRESSION: 1. No evidence for metastatic disease to the chest, abdomen or pelvis. 2. Prior appendectomy with no residual tumor or adenopathy.
[2019-12-10] MEDS: iohexol 300 mg/mL 50 mL Btl PO (11:03)
[2019-12-10] MEDS: iohexol 300 mg/mL 100 mL Btl IV (11:29)
== END 2019-12-10 09:22 | disposition home or self-care (01) ==
LOC: RADWPI 09:23
PROVIDERS: PCP Internal Medicine; Visit Provider Internal Medicine
DX: C18.1 Malignant neoplasm of appendix (principal); Q42.8 Congenital absence, atresia and stenosis of other parts of large intestine
CPT/HCPCS: 71260; 74177; Q9967

== ENCOUNTER 2019-12-16 08:44 | Outpatient (CLI) | payer MEDICAID, SELFPAY ==
--- NOTE | 2019-12-18 13:23 | ONC FU_ITS ---
Dr. Lozoya follow up note Patient: Bo Rubio Unit #: [id number]: 1985 Dicatated By: Hunter Lozoya M.D.Date of Visit:Dec 16, 2019 Onc Med Follow-up/Prog Note History of Present Illness: Mr. Bo Rubio, is a 33-year-old gentleman with history of renal stone and as per patient twisted 'nut' meant testicle torsion on November 01, 2019 morning woke up with right lower quadrant pain which was radiating to right testicle subsequently developed nausea and vomiting eventually went to emergency room and where he was diagnosed with appendicitis based on leukocytosis and CT scan of abdomen pelvis done on November 01, 2019 showed acute appendicitis as it showed marked diffuse distention with several appendicoliths and manuel-appendiceal inflammatory changes. 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 Patient tolerated procedure well Patient was referred to [facility] for second opinion and he was seen by Dr. Mcclellan on November 28, 2019 and his plan was to review his pathology and plan to discuss case in colorectal tumor board and consider his tumor for TEMPUS molecular analysis to assess for targetable molecular alterations,And CT scan of chest abdomen pelvis was ordered , which was done on December 10, 2019 which showed no evidence of metastatic disease to the chest abdomen or pelvis, prior appendicectomy with no residual tumor adenopathy as per patient right hemicolectomy is under consideration Came for follow-up, denies any specific complaints, no fever chills, no nausea or vomiting, no diarrhea or constipation now waiting for a call from [place] for surgical evaluation Medications: Chlorthalidone 1 Tablet (of 25 mg) Oral daily, FLUoxetine HCl 1 Capsule (of 40 mg) Oral daily Allergies: Cephalexin Review of Systems: Constitutional - Appetite is good and weight is stable. No fever or hot flashes. Positive for night sweats. Energy level is poor, ENMT - No sinus congestion/drainage. No mouth sores. Positive for sore throat. No difficulty swallowing, Hematologic/Lymphatic - No abnormal bruising or bleeding, Respiratory - No shortness of breath. No cough. No pleuritic pain or hemoptysis, Cardiovascular - No angina pain. No palpitations, Gastrointestinal - Positive for nausea and vomiting. Constant heartburn and acid reflux. Positive for diarrhea, no constipation. No blood in the stool or black stools, Genitourinary (M) - No dysuria or hematuria. No urinary frequency. No urgency or incontinence, Musculoskeletal - Positive for lower back pain, Neurologic - No headache or dizziness. No numbness or tingling. No other focal neurologic symptoms, Psychiatric - Positive for anxiety, depression and insomnia. Vital Signs: Performed on Dec 16, 2019 09:12 Height - 63.00 in Weight - 172.0 lbs (LOW) BSA - 1.81 sq.m BMI - 30.47 (HIGH) Temperature - 98.1 F (LOW) Pulse - 81 /min Respiration - 20 /min BP - 137/83 mm(hg) O2 Sat - 98 % Pain - 6 Performance Status: 0 - Fully active, able to carry on all predisease activities without restrictions. (ECOG) Physical Examination: ENMT - No mouth sores, no thrush, no jaundice, Respiratory - Lungs are clear to auscultation, Cardiovascular - Regular rate and rhythm of heart, Abdomen - Soft, bowel sounds present, Extremities - No visible edema. Lab/Imaging: Most recent lab results are not available for this patient. 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 Signed By: Hunter Lozoya M.D. <<Signature on File>>
== END 2019-12-16 08:45 | disposition home or self-care (01) ==
LOC: ONCMED 08:46
PROVIDERS: Visit Provider Internal Medicine Hematology & Oncology
DX: C18.1 Malignant neoplasm of appendix (principal); N20.0 Calculus of kidney
CPT/HCPCS: 99214

== ENCOUNTER 2020-01-24 10:41 | Emergency (ER) | payer MEDICAID, SELFPAY ==
[2020-01-24 10:46] VITALS: BP 174/119; PULSE 93; RESP 18; TEMP 36.8; O2SAT 95; BMI 31.5
--- NOTE | 2020-01-24 10:52 | ED_ITS ---
HPI - Abdominal Pain General: Chief Complaint: Nausea/Vomiting/Diarrhea Stated Complaint: SURGERY COMPLICATION (01/21/20 [facility]) Time Seen by Provider: 01/24/20 10:52 History of Present Illness: HPI narrative: 34-year-old male with presents complaining abdominal pain. Notes a malignant neoplasm of the appendix and recently had surgery on January 21, 2020 in [place]. He states he has been eating and drinking after he got out and doing okay he had passed gas but not had a bowel movement. Then overnight and early this morning he began getting very nauseous he states it is like extreme heartburn he has been vomiting he has some coffee ground even some streaking of bright red blood appearing in the vomitus. He denies any difficulty with breathing. He has not had any chest pain. No drainage from the incisions. He denies any hematochezia. MD elicited complaint: abdominal pain Pertinent past history: other (Right hemicolectomy within the last 7 days done laparoscopically at [place] discharge last evening) Onset (ago): hour(s) Pain Consistency: constant Location: Diffuse Severity: moderate Quality: cramping Radiation: none Migration to: no migration Exacerbating factors: vomiting Relieving factors: nothing Associated Symptoms: Reports anorexia, bloating, coffee ground emesis, GI cramping, dyspepsia, heartburn, hematemesis, nausea and poor appetite; Denies change in bowel habits, change in stool character, chills, constipation, diarrhea, dysuria, excessive flatus, fever(s), hematochezia, hematuria, fecal incontinence, loose stools, melena, syncope and vomiting Review of Systems Const: Denies: fever(s) or chills ENMT: Denies: throat pain, ear or mastoid pain, nasal discharge or nasal congestion Card: Denies: syncope Resp: Denies: dyspnea, productive cough or non-productive cough GI: Reports: nausea, hematemesis, coffee ground emesis, heartburn, bloating and GI cramping; Denies: vomiting, diarrhea, constipation, excessive flatus, fecal incontinence, change in bowel habits, change in stool character, hematochezia or melena : Denies: dysuria or hematuria Skin/Breast: Denies: rash or pruritus PFSH ED PFSH: Medical History Anxiety and depression Hypertension Nephrolithiasis I passed 2 stones Surgical History No significant past surgical history Social History Smoking and tobacco status: current every day smoker cigarettes Packs smoked per day: 1 Years cigarettes smoked: 17 Alcohol intake: current Physical Exam Const: COMMON NORMALS: no acute distress GENERAL APPEARANCE: cooperative and comfortable HENMT: COMMON NORMALS: normocephalic, atraumatic and hearing grossly normal bilaterally HEAD & SCALP: normocephalic and atraumatic Eye: COMMON NORMALS: Equal, round and reactive pupils present, EOMs intact bilaterally, conjunctivae normal and no scleral icterus CONJUNCTIVA: Yes conjunctivae normal PUPIL: Yes Equal, round and reactive pupils present Neck/C-Spine: COMMON NORMALS: full ROM, no lymphadenopathy, supple and no JVD Lymph: LYMPHATIC: no lymphadenopathy noted and no lymphedema noted Resp: COMMON NORMALS: normal respiratory effort, No retractions, No use of accessory muscles and clear to auscultation bilaterally AUSCULTATION: clear to auscultation bilaterally Cardio: COMMON NORMALS: no JVD, regular rate, regular rhythm and No murmurs present (Cardio) RATE: regular rate RHYTHM: regular rhythm GI: COMMON NORMALS: No hepatosplenomegaly present AUSCULTATION: Yes normoactive bowel sounds PALPATION: Yes Tenderness to palpation present (GI) (Diffuse), No Guarding due to palpation present (GI) and Yes No hepatosplenomegaly present Extremity: COMMON NORMALS: normal to inspection, capillary refill normal, no clubbing, cyanosis or edema, no calf tenderness and no pedal edema Skin: COMMON NORMALS: no rashes or lesions noted GENERAL SKIN EXAM: no rashes or lesions noted Course Vital Signs: Vital signs: Vital Signs Temperature 98.2 F 01/24/20 10:46 Pulse Rate 73 01/24/20 17:33 Respiratory Rate 16 01/24/20 17:33 Blood Pressure 156/105 01/24/20 17:33 Pulse Oximetry 95 01/24/20 17:33 MDM - Abdominal Pain MDM Narrative: Medical decision making narrative: Early small bowel obstruction potentially on the CT at that the site of the anastomosis. Additionally with his hematemesis and coffee-ground emesis patient requires hospitalization. Since he recently had surgery I called the fellow who is on- call for Dr. Cunningham who did surgery. He is going to accept him on transfer did prefer to have him there Dr. Carmen will be the receiving we are awaiting callback from [place] for room assignment prior to transfer. [facility] called back with a bed assignment will transfer via ambulance. Lab Data: Labs: Lab Results 01/24/20 01/24/20 01/24/20 Range/Units 12:15 12:15 12:15 WBC 21.1 H (4.0-10.0) 10^3/ uL RBC 5.05 (4.1-5.3) 10^6/u L Hgb 15.0 (11.7-16.6) g/dL Hct 44.0 (42.0-52.0) % MCV 87.1 (80-94) fL MCH 29.7 (28.0-34.0) pg MCHC 34.1 (30.0-36.0) g/dL RDW 12.4 (12.1-15.1) % Plt Count 397 (130-400) 10^3/c mm MPV 9.7 (7.4-10.4) fL Neut % (Auto) 86.4 % Lymph % (Auto) 6.5 % [place] % (Auto) 5.6 % Eos % (Auto) 0.7 % Baso % (Auto) 0.4 % Neut # (Auto) 18.20 H (1.8-7.7) 10^3/u L Lymph # (Auto) 1.4 (0.8-4.8) 10^3/u L [place] # (Auto) 1.2 H (0.2-0.9) 10^3/u L Eos # (Auto) 0.2 (0.0-0.8) 10^3/u L Baso # (Auto) 0.1 (0.0-0.1) 10^3/u L Nucleated RBC % (a uto) 0 % Nucleated RBCs # 0.0 /100WBC Sodium (136-145) mmol/L Potassium (3.5-5.1) mmol/L Chloride (98-107) mmol/L Carbon Dioxide (22-29) mmol/L Anion Gap (5-19) BUN (6-20) mg/dL Creatinine (0.7-1.2) mg/dL GFR Calculation (90-130) mL/min Glucose (65-115) mg/dL Calculated Osmolal ity (285-295) mOsm/k g Lactic Acid 1.0 (0.5-2.2) mmol/L Calcium (8.5-10.5) mg/dL Total Bilirubin (0.15-1.2) mg/dL AST (0-40) U/L ALT (0-41) U/L Alkaline Phosphata se (40-130) IU/L Total Protein (6.6-8.7) g/dL Albumin (3.5-5.2) g/dL Globulin (1.3-4.6) g/dL Lipase 61 H (13-60) U/L Gastric Occult Blo od (Negative) 01/24/20 01/24/20 Range/Units 12:15 12:25 WBC (4.0-10.0) 10^3/ uL RBC (4.1-5.3) 10^6/u L Hgb (11.7-16.6) g/dL Hct (42.0-52.0) % MCV (80-94) fL MCH (28.0-34.0) pg MCHC (30.0-36.0) g/dL RDW (12.1-15.1) % Plt Count (130-400) 10^3/c mm MPV (7.4-10.4) fL Neut % (Auto) % Lymph % (Auto) % [place] % (Auto) % Eos % (Auto) % Baso % (Auto) % Neut # (Auto) (1.8-7.7) 10^3/u L Lymph # (Auto) (0.8-4.8) 10^3/u L [place] # (Auto) (0.2-0.9) 10^3/u L Eos # (Auto) (0.0-0.8) 10^3/u L Baso # (Auto) (0.0-0.1) 10^3/u L Nucleated RBC % (a uto) % Nucleated RBCs # /100WBC Sodium 134 L (136-145) mmol/L Potassium 5.0 (3.5-5.1) mmol/L Chloride 92 L (98-107) mmol/L Carbon Dioxide 26 (22-29) mmol/L Anion Gap 21.0 H (5-19) BUN 10 (6-20) mg/dL Creatinine 0.7 (0.7-1.2) mg/dL GFR Calculation 130.7 H (90-130) mL/min Glucose 125 H (65-115) mg/dL Calculated Osmolal ity 279 L (285-295) mOsm/k g Lactic Acid (0.5-2.2) mmol/L Calcium 9.6 (8.5-10.5) mg/dL Total Bilirubin 0.3 (0.15-1.2) mg/dL AST 30 (0-40) U/L ALT 21 (0-41) U/L Alkaline Phosphata se 83 (40-130) IU/L Total Protein 7.0 (6.6-8.7) g/dL Albumin 4.2 (3.5-5.2) g/dL Globulin 2.8 (1.3-4.6) g/dL Lipase (13-60) U/L Gastric Occult Blo od Positive H (Negative) Discharge Plan Discharge Patient Disposition: Xfer Other Clinical Impression: Partial obstruction of small intestine, S/P right hemicolectomy, Appendix carcinoma Condition: Stable Discharge Date/Time: 01/24/20 17:40 Coding Level of Care Code ED Refuse Collector Supervisor for Chg Fwd Exam Comprehensive
--- NOTE | 2020-01-24 11:30 | CTR_ITS ---
PROCEDURE INFORMATION: Exam: CT Abdomen And Pelvis With Contrast Exam date and time: 01/24/2020 12:18 PM Age: 34 years old Clinical indication: Abdominal pain; Prior surgery; Surgery type: RT hemicolectomy 01/21/20; Additional info: Abd pain TECHNIQUE: Imaging protocol: Computed tomography of the abdomen and pelvis with intravenous contrast. Radiation optimization: All CT scans at this facility use at least one of these dose optimization techniques: automated exposure control; mA and/or kV adjustment per patient size (includes targeted exams where dose is matched to clinical indication); or iterative reconstruction. Contrast material: OMNI 300; Contrast volume: 95 ml; Contrast route: INTRAVENOUS (IV); COMPARISON: CT chest abd pel w con* 12/10/2019 11:18 AM RADIATION DOSE METRICS: Total DLP (mGy-cm): 623.21 FINDINGS: Mediastinal space: There is a small sliding hiatal hernia. Liver: Normal. No mass. Gallbladder and bile ducts: Normal. No calcified stones. No ductal dilation. Pancreas: Normal. No ductal dilation. Spleen: Normal. No splenomegaly. Adrenal glands: Normal. No mass. Kidneys and ureters: There is a benign cyst in the upper pole of the left kidney. There is no renal calcification or hydronephrosis. Stomach and bowel: Patient has undergone right hemicolectomy. There is a prominent amount of stool in the colon. There is dilatation of the distal small bowel prior to the ileocolic anastomosis. There is fecalization of the contents in the distal small bowel. These findings are suspicious for partial obstruction at the anastomosis. There is adjacent free fluid. The fluid may be related to recent surgery. Appendix: No evidence of appendicitis. Intraperitoneal space: There is a small amount of free fluid. Vasculature: Unremarkable. No abdominal aortic aneurysm. Lymph nodes: Unremarkable. No enlarged lymph nodes. Urinary bladder: Unremarkable as visualized. Reproductive: Unremarkable as visualized. Bones/joints: Unremarkable. No acute fracture. Soft tissues: Unremarkable. Other findings: No abscess is seen. CT/CT abdomen pelvis w con* [id number] IMPRESSION: 1. Patient has undergone recent right hemicolectomy. 2. The distal small bowel prior to the ileocolic anastomosis is dilated with fecalization of contents. This is suspicious for partial obstruction at the anastomosis. 3. Small ascites. COMMENTS: Consistent with the [employer]'s Incidental Findings Committee white paper (J Am Marva Radiol 2018): Any incidental renal lesion less than 1 cm or classified as too small to characterize, or any incidental cystic renal lesion characterized as simple-appearing, is likely benign. No follow-up imaging is recommended for these lesions per consensus recommendations based on imaging criteria. Radiation Dose CTDIVOL = (mGy): DLP = 623.21 (mGy-cm)
[2020-01-24] MEDS: ondansetron 2 mg/ML SDV 2 mL 4 MG IVP (11:59)
[2020-01-24] MEDS: morphine 4 mg/mL SDV 1 mL 6 MG IVP (11:59)
[2020-01-24] MEDS: sodium chloride 0.9% 1,000 ML 999 ML IV ×2 (12:00→15:46)
[2020-01-24] MEDS: pantoprazole 40 mg SDV 80 MG IVP (12:01)
[2020-01-24 12:04] VITALS: BP 148/109; PULSE 79; RESP 14; O2SAT 93
[2020-01-24] MEDS: iohexol 300 mg/mL 100 mL Btl IV (12:31)
[2020-01-24 12:42] LABS: Lipase 61 U/L (13-60)
[2020-01-24 12:47] LABS: Gastricult Occult Blood Positive (Negative)
[2020-01-24 13:34] VITALS: BP 130/91; PULSE 96; RESP 14; O2SAT 94
[2020-01-24 13:34] LABS: Basophils # 0.1 10^3/uL (0.0-0.1); Basophils % 0.4 %; Eosinophils # 0.2 10^3/uL (0.0-0.8); Eosinophils % 0.7 %; Lymphocytes # 1.4 10^3/uL (0.8-4.8); Lymphocytes % 6.5 %; Mean Corpuscular HGB Conc 34.1 g/dL (30.0-36.0); Mean Corpuscular Hemoglobin 29.7 pg (28.0-34.0); Mean Corpuscular Volume 87.1 fL (80-94); Mean Platelet Volume 9.7 fL (7.4-10.4); Monocytes # 1.2 10^3/uL (0.2-0.9); Monocytes % 5.6 %; Neutrophils % 86.4 %; Nucleated Red Blood Cells % 0 %; Platelet Count 397 10^3/cmm (130-400); Red Blood Count 5.05 10^6/uL (4.1-5.3); Red Cell Distribution Width 12.4 % (12.1-15.1); White Blood Count 21.1 10^3/uL (4.0-10.0)
[2020-01-24 13:44] LABS: Alanine Aminotransferase 21 U/L (0-41); Albumin Level 4.2 g/dL (3.5-5.2); Alkaline Phosphatase 83 IU/L (40-130); Aspartate Amino Transferase 30 U/L (0-40); Blood Urea Nitrogen 10 mg/dL (6-20); Calcium 9.6 mg/dL (8.5-10.5); Carbon Dioxide 26 mmol/L (22-29); Chloride 92 mmol/L (98-107); Globulin 2.8 g/dL (1.3-4.6); Glomerular Filtration Rate 130.7 mL/min (90-130); Glucose 125 mg/dL (65-115); Osmolality Calculated 279 mOsm/kg (285-295); Sodium 134 mmol/L (136-145); Total Bilirubin 0.3 mg/dL (0.15-1.2)
[2020-01-24 15:44] VITALS: BP 161/102; PULSE 80; RESP 16; O2SAT 92
[2020-01-24] MEDS: morphine 4 mg/mL SDV 1 mL IVP (17:30)
[2020-01-24] MEDS: sodium chlor 0.9% + KCl 20 mEq 20 MEQ/1,000 ML BAG 125 MEQ IV (17:31)
[2020-01-24 17:33] VITALS: BP 156/105; PULSE 73; RESP 16; O2SAT 95
== END 2020-01-24 17:40 | disposition other institution (70) ==
PROVIDERS: Emergency Provider Family Medicine
DX: K56.600 Partial intestinal obstruction, unspecified as to cause (principal); Z98.890 Other specified postprocedural states; C18.1 Malignant neoplasm of appendix; I10 Essential (primary) hypertension; F17.210 Nicotine dependence, cigarettes, uncomplicated; Z90.49 Acquired absence of other specified parts of digestive tract
CPT/HCPCS: 12345; 74177; 80053; 82271; 83605; 83690; 85025; 96365; 96366; 96375; 96376; 99283; 99285; C9113; J2270; J2405; J7030; Q9967

== ENCOUNTER 2020-06-18 14:54 | Emergency (ER) | payer BC, MEDICAID, SELFPAY ==
[2020-06-18 15:04] VITALS: BP 163/110; PULSE 92; RESP 18; TEMP 36.5; O2SAT 99; BMI 30.1
--- NOTE | 2020-06-18 15:27 | W.ED.EXTPRO ---
HPI - Extremity Problem General: Chief complaint: Extremity Problem,Nontraumatic Stated complaint: pain from shoulderblade into L arm/wrist Time Seen by Provider: 06/18/20 15:09 Source: patient Mode of arrival: ambulatory Limitations: no limitations History of Present Illness: HPI Narrative: 34-year-old male patient presents to the emergency department with 4-day onset of left arm pain and numbness/tingling. He reports neck pain and upper back pain x4 days prior to the onset of radiculopathy. He denies trauma, denies heavy lifting or injury that would lead to symptoms. He denies fever or chills. He states [id number] ibuprofen and Tylenol has not helped with pain. He has history of appendiceal carcinoma, recently cleared by [facility], he reports his right side dominant. He reports dropping things that he carries in his left hand, feels his left arm is weaker than his right. MD Complaint: extremity pain Onset (ago): day(s) (4) Location: left and upper extremity Severity scale (1-10): 7 Quality: burning, aching, dull and constant Radiation: distal Relieving factors: immobilization and rest Exacerbating factors: range of motion Associated symptoms: Reports no associated symptoms; Deny chest pain, fever(s) or rash Review of Systems General: Reports: 10 or more systems reviewed and unremarkable except in HPI and below Const: Denies: fever(s), chills or diaphoresis Eyes: Denies: blurry vision or eye redness ENMT: Denies: throat pain, dental pain or disequilibrium Card: Denies: chest pain, palpitations or irregular heart rhythm Resp: Denies: dyspnea, productive cough, non-productive cough or wheezing GI: Denies: abdominal pain, nausea or vomiting : Denies: dysuria Musc: Reports: neck pain, back pain, extremity pain and limited range of motion (left shoulder); Denies: muscle cramps or muscle weakness Skin/Breast: Denies: rash, pruritus, erythema, skin tenderness or changes in skin color Neuro: Reports: numbness in extremities (LUE); Denies: headache(s), weakness in extremities, lack of coordination, difficulty walking, frequent falls, dizziness, vertigo or behavioral changes Psych: Denies: anxiety or depression Dillon/Lymph: Denies: easy bruising PFSH ED PFSH: Medical History (Updated 06/19/20 @ 07:14 by ROXANNA Benítez) Anxiety and depression Carcinoma in situ of appendix Hypertension Nephrolithiasis I passed 2 stones Surgical History (Updated 06/19/20 @ 07:14 by ROXANNA Benítez) History of appendectomy No significant past surgical history Social History Smoking and tobacco status: current every day smoker cigarettes Packs smoked per day: 1 Years cigarettes smoked: 17 Alcohol intake: current Physical Exam Const: COMMON NORMALS: no acute distress, patient oriented x3, healthy appearing and alert GENERAL APPEARANCE: cooperative, comfortable and well hydrated HENMT: COMMON NORMALS: normocephalic, Normal external nose present and moist oral mucous membranes HEAD & SCALP: normocephalic NOSE: Normal external nose present Eye: COMMON NORMALS: Equal, round and reactive pupils present and EOMs intact bilaterally GENERAL EYE: appearance normal, both eyes and all related structures PUPIL: Yes Equal, round and reactive pupils present Neck/C-Spine: COMMON NORMALS: full ROM, no lymphadenopathy and supple GENERAL: Yes normal visual inspection, Yes trachea midline and No Meningeal signs present CERVICAL SPINE: Yes cervical ROM normal, Yes pain with cervical ROM with rotation to the left and with anterior flexion, Yes Cervical spine tenderness C5, C6, C7 and T1, Yes Paracervical muscle tenderness left and Yes Trapezius muscle tenderness left Lymph: LYMPHATIC: no lymphadenopathy noted Chest: COMMONS NORMALS: normal inspection of the chest and normal palpation of entire chest wall Resp: COMMON NORMALS: normal respiratory effort, No retractions, No use of accessory muscles and clear to auscultation bilaterally EFFORT & INSPECTION: Yes able to speak in complete sentences, No labored and No audible wheezes AUSCULTATION: clear to auscultation bilaterally Cardio: COMMON NORMALS: regular rate, regular rhythm, S1 normal heart sound present, S2 normal heart sound present and Peripheral pulses 2+ throughout RATE: regular rate RHYTHM: regular rhythm HEART SOUNDS: S1 normal heart sound present and S2 normal heart sound present PERIPHERAL PULSES: Peripheral pulses 2+ throughout GI: COMMON NORMALS: Normal to inspection, nondistended, normoactive bowel sounds present, Soft to palpation and non-tender INSPECTION: Yes normal to inspection, No abdominal wall ecchymosis, No Abdominal wall edema and No central obesity PALPATION: Yes Soft to palpation : COMMON NORMALS: Yes no CVA tenderness BLADDER/KIDNEY EXAM: Yes no CVA tenderness Back/Pelvis: COMMON NORMALS: no CVA tenderness THORACIC SPINE/UPPER BACK: Yes normal to inspection, Yes thoracic ROM normal, Yes thoracic spinal tenderness T-spine tenderness location: T1, T2, T3, T4, T5 and T6, Yes paraspinal muscle tenderness Thoracic paraspinal muscle tenderness: left and Yes paraspinal muscle spasm (Radiates to the scapula) Thoracic paraspinal muscle spasm: left LUMBAR SPINE/LOWER BACK: Yes normal to inspection, Yes lumbar ROM normal, No lumbar spinal tenderness, No paraspinal muscle tenderness and No paraspinal muscle spasm Extremity: COMMON NORMALS: normal to inspection, full ROM, capillary refill normal, no clubbing, cyanosis or edema and no pedal edema GENERAL: Yes normal exam except as noted OTHER: Left upper extremity with normal exam, no swelling redness or limited range of motion noted, hand grasp BUE 5/5 without weakness upon exam, vascular exam distally intact without deficit Neuro: COMMON NORMALS: patient oriented x3 and no focal motor deficits SENSORIUM/ORIENTATION: Yes alert GAIT: Yes Normal gait present MONOFILAMENT EXAM PERFORMED: Yes (Bilateral first third and fifth distal digit with normal monofilament exam) Psych: COMMON NORMALS: mental status grossly normal, Normal thought process present and cooperative ACTIVITY/MOTOR BEHAVIOR: Yes appropriate eye contact THOUGHT PROCESS: Normal thought process present Skin: COMMON NORMALS: no rashes or lesions noted and turgor normal GENERAL SKIN EXAM: no rashes or lesions noted and turgor normal Course Vital Signs: Vital signs: Vital Signs Temperature 97.7 F 06/18/20 15:04 Pulse Rate 92 06/18/20 15:04 Respiratory Rate 18 06/18/20 17:27 Blood Pressure 163/110 06/18/20 15:04 Pulse Oximetry 99 06/18/20 15:04 MDM - Extremity (Nontraumatic) MDM Narrative: Medical decision making narrative: 34-year-old male patient presents to the emergency department with history of appendiceal cancer, new onset of left upper extremity radiculopathy symptoms. CT scan of the cervical spine completed as he did exhibit midline tenderness with pain radiating to the left scapula suggestive of cervical spine disc impingement, CT scan cervical spine revealed left paramedian focal annular disc bulge C6-C7 with left neural foramina stenosis. Thoracic spine CT scan completed as patient continued to exhibit tenderness in the upper part of the thoracic area. CT of the thoracic spine negative for metastatic disease or abnormalities. He was placed on prednisone 20 mg twice daily with recommended follow-up with his primary care provider. He was administered hydrocodone here in the ED with improvement of symptoms. He did not exhibit left upper extremity weakness. Bilateral upper tank tender strength 5/5. No symptoms/clinical findings of DVT. Imaging Data^: Other CT: Rad[facility]'s impression: [facility] [address] [place] [address] CT Scan Report Signed Patient: Bo Rubio Unit #: [id number] : 1985 Age/Sex: 34 / M ADM Date: 06/18/20 Loc: ER Room/Bed: Attending Dr: Ordering Provider/Ordering MD: Zainab Gunn Date of Service: 06/18/20 Procedure(s): CT cervical spin wo con* [id number] Accession Number(s): [id number] Report Number: [id number] PROCEDURE INFORMATION: Exam: CT Cervical Spine Without Contrast Exam date and time: 06/18/2020 4:24 PM Age: 34 years old Clinical indication: Patient HX: Denies injury C/O neck pain w lue radiculopathy; Additional info: Neck pain with radiculopathy TECHNIQUE: Imaging protocol: Computed tomography images of the cervical spine without contrast. Total images: 285 Radiation optimization: All CT scans at this facility use at least one of these dose optimization techniques: automated exposure control; mA and/or kV adjustment per patient size (includes targeted exams where dose is matched to clinical indication); or iterative reconstruction. COMPARISON: No relevant prior studies available. RADIATION DOSE METRICS: Total DLP (mGy-cm): 528.57 FINDINGS: Bones/joints: No acute fracture. Normal alignment. Discs/Spinal canal/Neural foramina: Mild posterior annular disc bulge osteophyte complex C5/C6 not resulting in significant central canal stenosis. Left paramedian focal annular disc bulge C6/C7 with left neural foramina stenosis and would anticipate left C7 radiculopathy. No visible associated significant central canal stenosis. Lungs: Lung apices are normal. Soft tissues: Unremarkable. CT/CT cervical spin wo con* [id number] IMPRESSION: Left paramedian focal annular disc bulge C6/C7 with left neural foramina stenosis and would anticipate left C7 radiculopathy. Radiation Dose CTDIVOL = (mGy): DLP = 528.57 (mGy-cm) Dictated By: Van Wilkerson Signed By: Van Wilkerson Signed Date/Time: 06/18/201713 DD/ 11 Other Xray: Radiologist's impression: [facility] [address] [place] [address]. [place] [address] CT Scan Report Signed Patient: Bo Rubio Unit #: [id number] : 1985 Age/Sex: 34 / M ADM Date: 06/18/20 Loc: ER Room/Bed: Attending Dr: Ordering Provider/Ordering MD: Zainab Gunn Date of Service: 06/18/20 Procedure(s): CT thoracic spin wo con* [id number] Accession Number(s): [id number] Report Number: [id number] PROCEDURE INFORMATION: Exam: CT Thoracic Spine Without Contrast Exam date and time: 06/18/2020 4:24 PM Age: 34 years old Clinical indication: Pain in thoracic spine; With radiculopathy; Left; Patient HX: Denies injury C/O neck pain w lue radiculopathy TECHNIQUE: Imaging protocol: Computed tomography images of the thoracic spine without contrast. Total images: 474 Radiation optimization: All CT scans at this facility use at least one of these dose optimization techniques: automated exposure control; mA and/or kV adjustment per patient size (includes targeted exams where dose is matched to clinical indication); or iterative reconstruction. COMPARISON: No relevant prior studies available. RADIATION DOSE METRICS: Total DLP (mGy-cm): 1369.86 FINDINGS: Vertebrae: No acute fracture. Normal alignment. Minimal degenerative disease. Discs/Spinal canal/Neural foramina: No significant disc protrusion. No severe spinal canal stenosis. No significant neural foraminal narrowing. Small central posterior annular disc osteophyte complex T8/T9 not resulting in central canal stenosis or neural foraminal stenosis. Soft tissues: Unremarkable. CT/CT thoracic spin wo con* [id number] IMPRESSION: 1. No visible acute osseous abnormality. 2. No visible herniated nucleus pulposis or significant posterior annular disc bulge that would result in central canal stenosis or neural foraminal stenosis. Radiation Dose CTDIVOL = (mGy): DLP = 1369.86 (mGy-cm) Dictated By: Van Wilkerson Signed By: Van Wilkerson Signed Date/Time: 06/18/201716 DD/ 16 Discharge Plan Discharge Patient Disposition: Home Clinical Impression: Radiculopathy affecting upper extremity, Cervical disc disorder at C6-C7 level with radiculopathy Condition: Stable Prescriptions: New prednisone 20 mg tablet 20 mg PO BID 5 Days Qty: 10 RF: 0 No Action fluoxetine 40 mg capsule 40 mg PO DAILY RF: 0 chlorthalidone 25 mg Tablet 25 mg PO DAILY RF: 0 ondansetron 8 mg tablet,disintegrating 8 mg PO Q6H PRN (Reason: Nausea) RF: 0 Discharge Orders: Discharge ED (Routine); Ordered 06/18/20 Ordered By: Zainab Gunn Discharge Diet: Usual diet Discharge Activity: Limit activity as instructed Patient Instructions: Cervical Radiculopathy (ED), Opioid Safety Activity Restrictions/Additional Instructions: Take prednisone daily with food as directed Continue anti-inflammatory, take ibuprofen, 3 tablets, 200 mg each, take 3 times daily with meals -do not exceed this dose in a 24-hour period May augment pain needs with Tylenol as needed for pain Follow-up with your primary care provider next week without fail to ensure you are improving Return to the emergency department if you develop discoloration of the upper extremity, increased pain or other concerning symptoms. Coding Level of Care Code ED [employer] for [employer] Fwd Exam Comprehensive
[2020-06-18] MEDS: HYDROcodone-acetaminophen 5-325 mg Tablet 1 TAB PO (16:15)
[2020-06-18] MEDS: predniSONE 20 mg Tablet PO (17:13)
[2020-06-18 17:27] VITALS: RESP 18
== END 2020-06-18 17:28 | disposition home or self-care (01) ==
PROVIDERS: Emergency Provider Nurse Practitioner Family
DX: M50.123 Cervical disc disorder at C6-C7 level with radiculopathy (principal); I10 Essential (primary) hypertension; F17.210 Nicotine dependence, cigarettes, uncomplicated
CPT/HCPCS: 72125; 72128; 99283; J7512

== ENCOUNTER 2020-09-09 11:56 | Outpatient (CLI) | payer BC, MEDICAID, SELFPAY ==
[2020-09-09 13:01] LABS: Basophils # 0.1 10^3/uL (0.0-0.1); Basophils % 0.8 %; Eosinophils # 0.6 10^3/uL (0.0-0.8); Eosinophils % 3.6 %; Hematocrit 43.9 % (42.0-52.0); Hemoglobin 14.1 g/dL (11.7-16.6); Lymphocytes # 2.3 10^3/uL (0.8-4.8); Lymphocytes % 14.9 %; Mean Corpuscular HGB Conc 32.1 g/dL (30.0-36.0); Mean Corpuscular Hemoglobin 29.4 pg (28.0-34.0); Mean Corpuscular Volume 91.5 fL (80-94); Mean Platelet Volume 9.1 fL (7.4-10.4); Monocytes % 6.1 %; Neutrophils # 11.56 10^3/uL (1.8-7.7); Nucleated Red Blood Cells % 0 %; Platelet Count 418 10^3/cmm (130-400); Red Cell Distribution Width 13.8 % (12.1-15.1); White Blood Count 15.6 10^3/uL (4.0-10.0)
[2020-09-09 13:23] LABS: Alanine Aminotransferase 17 U/L (0-41); Albumin Level 4.1 g/dL (3.5-5.2); Alkaline Phosphatase 82 IU/L (40-130); Anion Gap 10.4 (5-19); Aspartate Amino Transferase 18 U/L (0-40); Blood Urea Nitrogen 14 mg/dL (6-20); Calcium 8.5 mg/dL (8.5-10.5); Carbon Dioxide 27 mmol/L (22-29); Chloride 105 mmol/L (98-107); Globulin 2.5 g/dL (1.3-4.6); Glucose 92 mg/dL (65-115); Osmolality Calculated 286 mOsm/kg (285-295); Potassium 4.4 mmol/L (3.5-5.1); Sodium 138 mmol/L (136-145); Total Bilirubin 0.2 mg/dL (0.15-1.2); Total Protein 6.6 g/dL (6.6-8.7)
--- NOTE | 2020-09-09 14:16 | ONC FU_ITS ---
Dr. Lozoya follow up note Patient: Bo Rubio Unit #: [id number]: 1985 Dicatated By: Hunter Lozoya M.D.Date of Visit:Sep 09, 2020 Onc Med Follow-up/Prog Note History of Present Illness: Mr. Bo Rubio, is a 34-year-old gentleman with history of renal stone and as per patient twisted 'nut' meant testicle torsion on November 01, 2019 morning woke up with right lower quadrant pain which was radiating to right testicle subsequently developed nausea and vomiting eventually went to emergency room and where he was diagnosed with appendicitis based on leukocytosis and CT scan of abdomen pelvis done on November 01, 2019 showed acute appendicitis as it showed marked diffuse distention with several appendicoliths and manuel-appendiceal inflammatory changes. 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 Patient tolerated procedure well Patient was referred to [facility] for second opinion and he was seen by Dr. Mcclellan on November 28, 2019 and his plan was to review his pathology and plan to discuss case in colorectal tumor board and consider his tumor for TEMPUS molecular analysis to assess for targetable molecular alterations,And CT scan of chest abdomen pelvis was ordered , which was done on December 10, 2019 which showed no evidence of metastatic disease to the chest abdomen or pelvis, prior appendicectomy with no residual tumor adenopathy, As per record from 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 No evidence of malignancy in 16 pericolonic lymph node As per patient he was evaluated by medical oncology and no further treatment was offered rather observation Came for follow-up, denies any specific complaints, no fever chills, no nausea or vomiting, no diarrhea constipation except off-and-on diarrhea with fried food otherwise no weight loss, no melena or hematochezia no hemoptysis hematemesis, No jaundice Medications: Chlorthalidone 1 Tablet (of 25 mg) Oral daily, FLUoxetine HCl 1 Capsule (of 40 mg) Oral daily Allergies: Cephalexin Review of Systems: Review of Systems is not available for this patient. Vital Signs: Performed on Sep 09, 2020 13:18 Height - 63.00 in Weight - 161.6 lbs (LOW) BSA - 1.77 sq.m BMI - 28.63 Temperature - 98.4 F Pulse - 94 /min Respiration - 18 /min BP - 156/106 mm(hg) (HIGH) O2 Sat - 99 % Pain - 0 Performance Status: 0 - Fully active, able to carry on all predisease activities without restrictions. (ECOG) Physical Examination: ENMT - No mouth sores, no thrush, no jaundice, Respiratory - Lungs are clear to auscultation, Cardiovascular - Regular rate and rhythm of heart, Abdomen - Soft, bowel sounds present, Extremities - No visible edema. Lab/Imaging: Most recent lab results are not available for this patient. 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 done on November 01, 2019 final pathology report showed moderately to poorly differentiated tumor with lymphovascular/perineural invasion and proximal and circumferential margins involved., No lymph node identified/submitted pT3,Nx, Subsequently underwent right hemicolectomy on January 21, 2020 at [facility] and final pathology report showed tumor invades cecum at the prior appendicectomy resection site and extends into subserosa, T3, clear surgical margin, perineural invasion seen, 0 out of 16 positive lymph nodes, N0, stage II, observation was recommended at [place] History of renal stones Chronic smoking Plan: Discussed with patient regarding his labs white blood count 15.6 hemoglobin 14.1 hematocrit 43.9 platelets 418,000 ANC 11,560 CMP within normal limits Clinically, patient doing well with no new signs symptom suggestive of recurrence of disease, since his last visit patient has undergone right hemicolectomy at [place], was diagnosed with T3N0 disease 0 out of 16 lymph nodes were positive for metastatic disease, as per patient observation was recommended but he did not go back for follow-up until today but no specific complaints, at this point, will refer him to Dr. Peters for postsurgical yearly colonoscopy. And he will return to clinic in 1 4 months with CBC CMP and CEA Past with mild leukocytosis concern, etiology unclear most likely due to chronic smoking or smoking-related chronic bronchitis or sinusitis patient has no acute symptoms no sign of infection, patient was advised to quit smoking and was offered any assistance he may need., Will monitor his blood counts if he has persistent leukocytosis will consider further evaluation with flow cytometry. Return to clinic in 4 months with CBC CMP and CEA. Signed By: Hunter Lozoya M.D. <<Signature on File>>
== END 2020-09-09 11:57 | disposition home or self-care (01) ==
LOC: ONCMED 11:58
PROVIDERS: Visit Provider Internal Medicine Hematology & Oncology
DX: Z08 Encounter for follow-up examination after completed treatment for malignant neoplasm (principal); Z85.858 Personal history of malignant neoplasm of other endocrine glands; F17.210 Nicotine dependence, cigarettes, uncomplicated; Z87.442 Personal history of urinary calculi; Z79.899 Other long term (current) drug therapy
CPT/HCPCS: 80053; 85025; 99214

== ENCOUNTER 2021-02-17 12:57 | Outpatient (CLI) | payer BC, MEDICAID, SELFPAY ==
[2021-02-17 13:23] LABS: Basophils # 0.1 10^3/uL (0.0-0.1); Basophils % 1.1 %; Eosinophils # 0.3 10^3/uL (0.0-0.8); Eosinophils % 3.5 %; Hematocrit 49.4 % (42.0-52.0); Lymphocytes # 2.7 10^3/uL (0.8-4.8); Lymphocytes % 27.8 %; Mean Corpuscular HGB Conc 34.4 g/dL (30.0-36.0); Mean Corpuscular Hemoglobin 30.7 pg (28.0-34.0); Mean Corpuscular Volume 89.2 fl (80-94); Mean Platelet Volume 8.9 fL (7.4-10.4); Monocytes % 9.8 %; Neutrophils # 5.63 10^3/uL (1.8-7.7); Neutrophils % 57.5 %; Nucleated Red Blood Cells % 0 %; Platelet Count 410 10^3/cmm (130-400); Red Blood Count 5.54 10^6/uL (4.1-5.3); Red Cell Distribution Width 13.3 % (12.1-15.1); White Blood Count 9.8 10^3/uL (4.0-10.0)
[2021-02-17 13:44] LABS: Alanine Aminotransferase 10 U/L (0-41); Albumin Level 4.7 g/dL (3.5-5.2); Alkaline Phosphatase 86 IU/L (40-130); Aspartate Amino Transferase 16 U/L (0-40); Blood Urea Nitrogen 10 mg/dL (6-20); Calcium 9.2 mg/dL (8.5-10.5); Carbon Dioxide 23 mmol/L (22-29); Chloride 104 mmol/L (98-107); Glomerular Filtration Rate 97.2 mL/min (90-130); Glucose 86 mg/dL (65-115); Osmolality Calculated 284 mOsm/kg (285-295); Sodium 138 mmol/L (136-145); Total Bilirubin 0.3 mg/dL (0.15-1.2); Total Protein 7.7 g/dL (6.6-8.7)
[2021-02-17 14:02] LABS: Anion Gap 15.1 (5-19); Potassium 4.1 mmol/L (3.5-5.1)
[2021-02-17 14:42] LABS: Carcinoembryonic Antigen 4.7 ng/mL (0.0-4.7)
--- NOTE | 2021-02-17 15:50 | ONC FU_ITS ---
Dr. Lozoya follow up note Patient: Bo Rubio Unit #: [id number]: 1985 Dicatated By: Hunter Lozoya M.D.Date of Visit:Feb 17, 2021 Onc Med Follow-up/Prog Note History of Present Illness: Mr. Bo Rubio, is a 35-year-old gentleman with history of renal stone and as per patient twisted 'nut' meant testicle torsion on November 01, 2019 morning woke up with right lower quadrant pain which was radiating to right testicle subsequently developed nausea and vomiting eventually went to emergency room and where he was diagnosed with appendicitis based on leukocytosis and CT scan of abdomen pelvis done on November 01, 2019 showed acute appendicitis as it showed marked diffuse distention with several appendicoliths and manuel-appendiceal inflammatory changes. 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 Patient tolerated procedure well Patient was referred to [facility] for second opinion and he was seen by Dr. 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 No evidence of malignancy in 16 pericolonic lymph node As per patient he was evaluated by medical oncology and no further treatment was offered rather observation Underwent colonoscopy on November 29, 2020 which showed a sessile polyp 4 mm in diameter in the distal transverse colon, was not bleeding, polyp was completely excised by snare, and rectum a few small sized uncomplicated internal hemorrhoids were seen. Evaluated via telephone, patient denies any specific complaints, no fever chills, no nausea or vomiting, no diarrhea constipation, no melena hematochezia no hemoptysis hematemesis, no abdominal pain, no headaches, no jaundice Medications: Chlorthalidone 1 Tablet (of 25 mg) Oral daily, FLUoxetine HCl 1 Capsule (of 40 mg) Oral daily Allergies: Cephalexin Review of Systems: Review of Systems is not available for this patient. Vital Signs: Vitals are not available for this patient. Performance Status: 0 - Fully active, able to carry on all predisease activities without restrictions. (ECOG) Physical Examination: ENMT - Denies any mouth sores or jaundice, Respiratory - Denies any shortness of breath or wheezing, Cardiovascular - Denies any palpitation, Abdomen - Denies any abdominal pain or fullness, Extremities - Denies any edema. Lab/Imaging: Most recent lab results are not available for this patient. 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 done on November 01, 2019 final pathology report showed moderately to poorly differentiated tumor with lymphovascular/perineural invasion and proximal and circumferential margins involved., No lymph node identified/submitted pT3,Nx, Subsequently underwent right hemicolectomy on January 21, 2020 at [facility] and final pathology report showed tumor invades cecum at the prior appendicectomy resection site and extends into subserosa, T3, clear surgical margin, perineural invasion seen, 0 out of 16 positive lymph nodes, N0, stage II, observation was recommended at [place] History of renal stones Chronic smoking Plan: Discussed with patient regarding his labs via telephone, white blood count 9.8 compared to 15.6 previously on September 09, 2020, hemoglobin 17 compared to 14.1 previously hematocrit 49.4 normal being 42-52, platelets 410 CMP within normal limits, CEA 4.7 Patient done colonoscopy shows no abnormality except small sessile polyp in transverse colon which was removed and small internal hemorrhoids. Clinically, patient doing well with no signs symptom suggestive of recurrence of disease recently underwent colonoscopy which was unremarkable, his lab work-up shows resolution of isolated leukocytosis, but now shows mild polycythemia, probably reactive, patient is a heavy smoker, patient was advised to quit smoking and was offered any assistance he may need, will monitor his hemoglobin/hematocrit so he will return to clinic in 1 month with CBC Signed By: Hunter Lozoya M.D. <<Signature on File>>
== END 2021-02-17 12:58 | disposition home or self-care (01) ==
LOC: ONCMED 13:02
PROVIDERS: Visit Provider Internal Medicine Hematology & Oncology
DX: Z08 Encounter for follow-up examination after completed treatment for malignant neoplasm (principal); Z85.89 Personal history of malignant neoplasm of other organs and systems; F17.210 Nicotine dependence, cigarettes, uncomplicated; Z87.442 Personal history of urinary calculi; Z79.899 Other long term (current) drug therapy
CPT/HCPCS: 36415; 80053; 82378; 85025; 99214

== ENCOUNTER 2021-12-01 12:56 | Oncology outpatient (recurring) (ONCR) | payer BC, MEDICAID, SELFPAY ==
[2021-12-01 14:01] LABS: Basophils # 0.1 10^3/uL (0.0-0.1); Eosinophils # 0.6 10^3/uL (0.0-0.8); Eosinophils % 4.8 %; Hematocrit 46.1 % (42.0-52.0); Lymphocytes # 2.3 10^3/uL (0.8-4.8); Lymphocytes % 20.1 %; Mean Corpuscular HGB Conc 32.5 g/dL (30.0-36.0); Mean Corpuscular Hemoglobin 29.5 pg (28.0-34.0); Mean Corpuscular Volume 90.6 fl (80-94); Monocytes % 8.7 %; Neutrophils # 7.38 10^3/uL (1.8-7.7); Nucleated Red Blood Cells % 0 %; Platelet Count 404 10^3/cmm (130-400); Red Blood Count 5.09 10^6/uL (4.1-5.3); Red Cell Distribution Width 13.2 % (12.1-15.1); White Blood Count 11.4 10^3/uL (4.0-10.0)
[2021-12-01 14:58] LABS: Carcinoembryonic Antigen 4.3 ng/mL (0.0-4.7)
[2021-12-01 15:08] LABS: Alanine Aminotransferase 10 U/L (0-41); Albumin Level 4.5 g/dL (3.5-5.2); Alkaline Phosphatase 85 U/L (40-130); Anion Gap 16.8 (5-19); Aspartate Amino Transferase 14 U/L (0-40); Blood Urea Nitrogen 13 mg/dL (6-20); Calcium 9.5 mg/dL (8.5-10.5); Carbon Dioxide 25 mmol/L (22-29); Chloride 101 mmol/L (98-107); Globulin 2.9 g/dL (1.3-4.6); Glomerular Filtration Rate 85.5 mL/min (90-130); Glucose 97 mg/dL (65-115); Osmolality Calculated 288 mOsm/kg (285-295); Potassium 3.8 mmol/L (3.5-5.1); Sodium 139 mmol/L (136-145); Total Bilirubin 0.2 mg/dL (0.15-1.2); Total Protein 7.4 g/dL (6.6-8.7)
== END 2021-12-16 23:59 | disposition home or self-care (01) ==
PROVIDERS: Visit Provider Internal Medicine Hematology & Oncology
DX: C18.1 Malignant neoplasm of appendix (principal)
CPT/HCPCS: 80053; 82378; 85025

== ENCOUNTER 2021-12-05 13:02 | Outpatient (CLI) | payer BC, MEDICAID, SELFPAY ==
[2021-12-05 13:38] LABS: Basophils # 0.1 10^3/uL (0.0-0.1); Basophils % 0.9 %; Eosinophils # 0.6 10^3/uL (0.0-0.8); Eosinophils % 5.1 %; Hematocrit 48.7 % (42.0-52.0); Hemoglobin 15.8 g/dL (11.7-16.6); Lymphocytes # 2.8 10^3/uL (0.8-4.8); Lymphocytes % 24.3 %; Mean Corpuscular HGB Conc 32.4 g/dL (30.0-36.0); Mean Corpuscular Hemoglobin 29.2 pg (28.0-34.0); Mean Corpuscular Volume 89.9 fl (80-94); Mean Platelet Volume 8.8 fL (7.4-10.4); Monocytes % 8.7 %; Neutrophils # 6.91 10^3/uL (1.8-7.7); Neutrophils % 60.6 %; Nucleated Red Blood Cells % 0 %; Platelet Count 422 10^3/cmm (130-400); Red Blood Count 5.42 10^6/uL (4.1-5.3); Red Cell Distribution Width 13.4 % (12.1-15.1); White Blood Count 11.4 10^3/uL (4.0-10.0)
[2021-12-05 14:01] LABS: Alanine Aminotransferase 10 U/L (0-41); Albumin Level 4.2 g/dL (3.5-5.2); Alkaline Phosphatase 85 U/L (40-130); Anion Gap 14.3 (5-19); Aspartate Amino Transferase 14 U/L (0-40); Blood Urea Nitrogen 18 mg/dL (6-20); Calcium 9.4 mg/dL (8.5-10.5); Carbon Dioxide 25 mmol/L (22-29); Chloride 102 mmol/L (98-107); Globulin 3.3 g/dL (1.3-4.6); Glomerular Filtration Rate 110.7 mL/min (90-130); Glucose 85 mg/dL (65-115); Osmolality Calculated 285 mOsm/kg (285-295); Potassium 4.3 mmol/L (3.5-5.1); Sodium 137 mmol/L (136-145); Total Bilirubin 0.3 mg/dL (0.15-1.2); Total Protein 7.5 g/dL (6.6-8.7)
[2021-12-05 14:31] LABS: Carcinoembryonic Antigen 4.7 ng/mL (0.0-4.7)
[2021-12-06 12:59] LABS: Leukemia Profile (BBPL) See Report
== END 2021-12-05 13:03 | disposition home or self-care (01) ==
LOC: LAB 13:05
PROVIDERS: Visit Provider Internal Medicine Hematology & Oncology
DX: D72.829 Elevated white blood cell count, unspecified (principal)
CPT/HCPCS: 80053; 82378; 85025; 88184; 88185

== ENCOUNTER → 2022-02-26 13:05 | Outpatient (BNVA) | payer BC, MEDICAID, SELFPAY | PROVIDERS: Visit Provider Nurse Practitioner Family | DX: R50.9 Fever, unspecified (principal) | CPT/HCPCS: 87400 ==

== ENCOUNTER 2022-08-15 11:09 | Oncology outpatient (recurring) (ONCR) | payer BC, MEDICAID, SELFPAY | END 2022-08-16 23:59 | disposition home or self-care (01) | PROVIDERS: Visit Provider Internal Medicine Hematology & Oncology | DX: Z53.9 Procedure and treatment not carried out, unspecified reason (principal) ==

== ENCOUNTER → 2022-08-15 11:09 | Outpatient (BNVA) | payer BC, MEDICAID, SELFPAY | PROVIDERS: Visit Provider Nurse Practitioner Family | DX: C18.1 Malignant neoplasm of appendix (principal); K92.1 Melena; R10.9 Unspecified abdominal pain | CPT/HCPCS: 36415; 80053; 82378; 85025 ==

== ENCOUNTER 2022-09-16 06:13 | Outpatient (CLI) | payer BC, MEDICAID, SELFPAY ==
--- NOTE | 2022-09-16 12:30 | PETR_ITS ---
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 Then, PET images were obtained. Attenuation corrected images were constructed using the CT scan. Fused images of PET and CT were reviewed. The standardized uptake values (SUV) reported below are maximum values within a region of interest, expressed in gm/ml. Exam includes orbital meatal line to mid-thigh. Radiopharmaceutical: 12.96 mCi F-18 FDG (Fluorodeoxyglucose), IV. Time of imaging post radiopharmaceutical administration: 1 hour Injection site: Left antecubital COMPARISON: CT thoracic and cervical spine 06/18/2020, CT abdomen and pelvis 01/24/2020, CT chest, abdomen and pelvis 12/10/2019 FINDINGS: Brain: Visualized brain has normal physiologic uptake. Pharynx: Bilateral palatine tonsillar uptake is elevated, SUV max 7.0 on the right and 5.9 on the left. Larynx: No abnormal uptake. Lungs, pleura and trachea: There is a right upper lobe calcified granuloma. No abnormal uptake. Heart: Normal physiologic uptake. Mediastinal space: No abnormal uptake. Liver: No abnormal uptake. Gallbladder and bile ducts: No abnormal uptake. Pancreas: No abnormal uptake. Spleen: No abnormal uptake. Adrenal glands: No abnormal uptake. Kidneys and ureters: Normal physiologic uptake. There is evidence of a 1-2 mm stone in the left renal superior pole. No hydronephrosis. Unremarkable right kidney. Stomach and bowel: There is a surgical staple line in the right colon compatible with partial colectomy. No abnormal uptake. A long the left pelvic sidewall on series 3, image 125, there is a non radiotracer avid 2.3 cm in diameter thin walled structure with central fluid density which may represent a short segment of a fluid-filled loop of small bowel. Vasculature: No abnormal uptake. Lymph nodes: Right hilar calcified lymph nodes are noted. Mildly prominent left axillary lymph nodes are slightly increased in size compared with 12/10/2019 with low-level activity for example measuring 1.2 x 0.7 cm on series 3, image 41, SUV max 2.2 (previously measuring 0.9 x 0.6 cm) and measuring 0.9 cm in diameter on series 3, image 43, SUV max 1.7 (previously measuring 0.8 cm). Bones/joints: No abnormal uptake in the visualized axial and appendicular skeleton. Benign-appearing likely degenerative sclerotic changes are noted at the sacroiliac joints.There is mild diffuse vertebral body spondylosis. Soft tissues: No abnormal uptake in the visualized head, neck, chest, abdomen, pelvis, and extremities. METRICS: Mediastinal blood pool: SUV max 2.1 [facility] [id number] IMPRESSION: 1. Mildly prominent left axillary lymph nodes appear increased in size compared with 12/10/2019 with low-level activity (SUV max 2.2) which is similar to mediastinal blood pool activity. Although neoplastic involvement cannot be entirely excluded, an infectious or inflammatory etiology is favored. 2. Bilateral palatine tonsillar uptake is elevated, likely inflammatory or infectious in etiology. 3. A rounded structure with central fluid density along the left pelvic sidewall may represent a normal fluid-filled segment of small bowel. Assessment is limited without intraluminal contrast. No abnormal uptake in this region is noted favoring a benign etiology. 4. Old granulomatous changes. 5. Nonobstructing left nephrolithiasis.
== END 2022-09-16 06:14 | disposition home or self-care (01) ==
LOC: RAD 09-18 06:13
PROVIDERS: Visit Provider Nurse Practitioner Family
DX: R59.0 Localized enlarged lymph nodes (principal); N20.0 Calculus of kidney; J35.8 Other chronic diseases of tonsils and adenoids
CPT/HCPCS: 78815; A9552

== ENCOUNTER 2022-09-21 11:09 | Oncology outpatient (recurring) (ONCR) | payer BC, MEDICAID, SELFPAY ==
[2022-09-21 11:13] VITALS: BP 159/110; PULSE 84; RESP 18; TEMP 36.8; O2SAT 98
[2022-09-21 11:24] LABS: Basophils # 0.1 10^3/uL (0.0-0.1); Basophils % 0.8 %; Eosinophils # 0.7 10^3/uL (0.0-0.8); Hematocrit 47.7 % (42.0-52.0); Hemoglobin 16.4 g/dL (11.7-16.6); Lymphocytes # 2.7 10^3/uL (0.8-4.8); Mean Corpuscular HGB Conc 34.4 g/dL (30.0-36.0); Mean Corpuscular Hemoglobin 29.9 pg (28.0-34.0); Mean Platelet Volume 8.5 fL (7.4-10.4); Monocytes # 0.8 10^3/uL (0.2-0.9); Monocytes % 7.1 %; Neutrophils # 7.21 10^3/uL (1.8-7.7); Neutrophils % 62.7 %; Nucleated Red Blood Cells % 0 %; Platelet Count 393 10^3/cmm (130-400); Red Blood Count 5.48 10^6/uL (4.1-5.3); Red Cell Distribution Width 13.1 % (12.1-15.1); White Blood Count 11.5 10^3/uL (4.0-10.0)
[2022-09-21 11:51] LABS: Carcinoembryonic Antigen 4.4 ng/mL (0.0-4.7)
[2022-09-21 12:02] LABS: Alanine Aminotransferase 16 U/L (0-41); Albumin Level 4.2 g/dL (3.5-5.2); Alkaline Phosphatase 91 U/L (40-130); Anion Gap 17.9 (5-19); Aspartate Amino Transferase 19 U/L (0-40); Blood Urea Nitrogen 13 mg/dL (6-20); Carbon Dioxide 21 mmol/L (22-29); Chloride 104 mmol/L (98-107); Globulin 3.2 g/dL (1.3-4.6); Glomerular Filtration Rate 110.7 mL/min (90-130); Glucose 110 mg/dL (65-115); Osmolality Calculated 289 mOsm/kg (285-295); Potassium 3.9 mmol/L (3.5-5.1); Sodium 139 mmol/L (136-145); Total Bilirubin 0.3 mg/dL (0.15-1.2); Total Protein 7.4 g/dL (6.6-8.7)
== END 2022-10-16 23:59 | disposition home or self-care (01) ==
PROVIDERS: Nurse Practitioner Family; Visit Provider Internal Medicine Hematology & Oncology
DX: C18.1 Malignant neoplasm of appendix (principal)
CPT/HCPCS: 36415; 80053; 82378; 85025

== ENCOUNTER → 2023-05-31 12:37 | Outpatient (BNVA) | payer BC, MEDICAID, SELFPAY | PROVIDERS: PCP Family Medicine Adult Medicine; Visit Provider Nurse Practitioner Family | DX: R05.9 Cough, unspecified (principal) | CPT/HCPCS: 87400 ==

== ENCOUNTER → 2023-11-09 10:44 | Outpatient (BNVA) | payer SELFPAY | PROVIDERS: PCP Family Medicine Adult Medicine; Visit Provider Nurse Practitioner Family | DX: J06.9 Acute upper respiratory infection, unspecified (principal) | CPT/HCPCS: 87426 ==

== ENCOUNTER 2024-08-26 11:56 | Emergency (ER) | payer BC, MEDICAID, SELFPAY ==
[2024-08-26 12:08] VITALS: BP 159/100; PULSE 77; RESP 17; TEMP 36.5; O2SAT 99; BMI 26.5
[2024-08-26 12:18] LABS: Bilirubin Urine Negative (Negative); Blood Urine 2+ (Negative); Glucose Urine UA Negative (Normal); Ketones Urine Negative (Negative); Leukocyte Esterase Urine Negative (Negative); Nitrate Urine Negative (Negative); Protein Urine 2+ (Negative); Specific Gravity, Urine 1.003 (1.005-1.030); Urine Appearance Clear (CLEAR); Urine Color Yellow (Yellow); Urobilinogen Urine 0.2 mg/dL (Negative)
[2024-08-26 12:23] LABS: Add Urine Microscopic? YES; Bacteria Urine None Seen /hpf; Hyaline Casts Urine 0-4 /lpf; RBC Urine 0-2 /hpf (0-2); Squamous Epithelial Cell Urine 0-5 /hpf (0-5); WBC Urine 0-5 /hpf (0-5)
[2024-08-26 12:28] LABS: Add Urine Culture? No
--- NOTE | 2024-08-26 12:35 | CT_ITS ---
WS: [id number] CT ABDOMEN AND PELVIS NONCONTRAST HISTORY: L flank pain, hematuria TECHNIQUE: Imaging performed through the abdomen and pelvis. Coronal and sagittal reformats are submitted. All CT scans at [facility] use at least one of these dose optimization techniques: automated exposure control; mA and/or kV adjustment per patient size (includes targeted exams where dose is matched to clinical indication); or iterative reconstruction. DLP: 401.99 mGy.cm COMPARISON: 01/24/2020 Lower thorax: Lung bases are clear. Visualized heart is normal. Small hiatal hernia. Liver: Normal size liver. No mass or bile duct dilatation. Gallbladder: Normal gallbladder. No pericholecystic fluid or cholelithiasis. No gallbladder wall thickening. Pancreas: Normal size and attenuation. Normal pancreatic duct. No pancreatitis or mass. Spleen: Normal. Adrenal glands: Normal. No mass. Right kidney: No hydronephrosis. 2 mm nonobstructing lower pole calcification. Normal RIGHT ureter. Left kidney: Mild to moderate hydronephrosis. Mild dilatation of the central pelvis and the calyces. LEFT ureter is dilated. 5 mm stone is projecting into the urinary bladder. This may potentially still be within the very distal ureteral orifice. There is mild wall thickening of the distal LEFT ureter. No additional calcifications within the LEFT kidney. Low-attenuation mass measuring 1.3 cm in the superior pole of the LEFT kidney is noted to be a cyst on the prior exam. Aorta: Mild atherosclerosis abdominal aorta with no aneurysm. No free fluid, intraperitoneal air or significant lymphadenopathy. GI tract: Normally distended stomach. No small bowel obstruction. Partial RIGHT hemicolectomy. Abdominal wall: Negative. No hernia. Pelvis: Minimally distended urinary bladder. There is a calcification in the LEFT bladder near the ureteral orifice. Osseous structures: Mild anterior wedging of the L2 by 10%. Stable. CT/CT kidney stone [id number] IMPRESSION: 1. Mild to moderate LEFT hydroureteronephrosis. The entire LEFT ureter is dila echo with inflammatory changes in the wall. 5 mm calcification is either in the very distal ureter or extruded into the urinary bladder. 2. No additional LEFT renal calcifications. 3. Status post RIGHT hemicolectomy. Prior appendectomy.
--- NOTE | 2024-08-26 12:55 | W.ED.MALEGU ---
HPI - Male Genitourinary General: Chief complaint: Urogenital-Male Stated complaint: LT abd pain Time Seen by Provider: 08/26/24 12:06 Source: patient Mode of arrival: ambulatory Limitations: no limitations History of Present Illness: Patient is a 38-year-old male presents to ED today for concerns of a possible left ureteral stone. He states he has had several kidney/ureter stones in the past and states that symptoms today feel similar. He sees the primary care about 2 weeks ago and placed on Flomax. He states he is continuing to have discomfort and feels like he has yet to pass the stone. He is complaining of pain with urination, feeling of incomplete bladder emptying, as well as urinary hesitancy/frequency. He states he is taking [id number] ibuprofen as needed for discomfort but this is not helping. He has had nausea but not any episodes of emesis. Bowel movements have been normal. No fevers. Thinks he may have had lithotripsy in the past for a stone. MD Complaint: other (kidney/ureter stone) Onset (ago): day(s) Duration: constant Location: left flank and abdomen Severity: moderate Relieving factors: none Exacerbating factors: urination Associated symptoms: Reports dysuria and nausea; Deny hematuria, urinary incontinence or vomiting Related Data Home Medications ?Medication ?Instructions ?Recorded ?Confirmed ibuprofen 200 mg tablet (Advil) 400 mg PO Q6H PRN Pain 08/26/24 08/26/24 Previous Rx's ?Medication ?Instructions ?Recorded tamsulosin 0.4 mg capsule (Flomax) 0.4 mg PO DAILY #30 caps 08/11/24 hydrocodone 5 mg-acetaminophen 325 1 tab PO Q6H PRN pain #14 tabs 08/26/24 mg tablet ondansetron 4 mg disintegrating 4 mg PO Q8H PRN nausea and 08/26/24 tablet vomiting #14 tabs Allergies Allergy/AdvReac Type Severity Reaction Status Date / Time cephalexin Allergy Nausea, Verified 08/11/24 18:05 turned red (penicillins are okay) Review of Systems Const: Denies: fever(s), chills, body aches, fatigue or malaise Card: Denies: chest pain Resp: Denies: dyspnea GI: Reports: abdominal pain and nausea; Denies: vomiting or change in bowel habits : Reports: flank pain, difficulty urinating, dysuria and urinary hesitancy; Denies: urinary incontinence, hematuria or testicular pain Musc: Reports: back pain; Denies: neck pain, extremity pain, extremity swelling, joint pain, joint swelling or joint redness Skin/Breast: Denies: rash Neuro: Denies: headache(s), numbness in extremities, weakness in extremities, sensory changes or dizziness PFSH ED PFSH: Medical History Gastroesophageal reflux disease Hx of renal calculi I passed 2 stones 11/01/2019 Adenocarcinoma of appendix Appendicitis surgery on 11/01/2019 referral to [place] with hemicolectomy and ileal colectomy on 01/21/2020 Carcinoma in situ of appendix Hypertension Anxiety and depression Surgical History S/P right hemicolectomy 01/21/2020 at [place] with ileo-colectomy as well. History of appendectomy Family History Other Diabetes Hypertension Denies family history of CAD (coronary artery disease) Clotting disorder Dementia Hyperlipidemia Psychiatric illness Chronic kidney disease (CKD) Suicide Anesthesia complication Bleeding disorder Lung disease Cancer Stroke Social History Smoking and tobacco/nicotine status: former use of tobacco/nicotine Alcohol intake: current Physical Exam Const: COMMON NORMALS: no acute distress, average body habitus, no limitations, healthy appearing, alert and well nourished GENERAL APPEARANCE: cooperative Resp: COMMON NORMALS: normal respiratory effort and clear to auscultation bilaterally AUSCULTATION: clear to auscultation bilaterally Cardio: COMMON NORMALS: regular rate and regular rhythm RATE: regular rate RHYTHM: regular rhythm GI: COMMON NORMALS: Normal to inspection, nondistended, normoactive bowel sounds present, Soft to palpation, No hepatosplenomegaly present and no masses INSPECTION: Yes normal to inspection PALPATION: Yes Soft to palpation, Yes Tenderness to palpation present (GI) (L abdomen), No Guarding due to palpation present (GI), No Rigid due to palpation and Yes No hepatosplenomegaly present : BLADDER/KIDNEY EXAM: Yes CVA tenderness (just below L) Back/Pelvis: COMMON NORMALS: thoracic and lumbar spine normal to inspection and no thoracic nor lumbar tenderness GENERAL BACK: Yes CVA tenderness (just below L) Extremity: GENERAL: Yes normal exam except as noted Neuro: COMMON NORMALS: moves all extremities, no focal motor deficits and no sensory deficits noted SENSORIUM/ORIENTATION: Yes alert Skin: COMMON NORMALS: no rashes or lesions noted GENERAL SKIN EXAM: no rashes or lesions noted Course Vital Signs: Vital signs: Vital Signs Temperature 97.7 F 08/26/24 12:08 Pulse Rate 98 08/26/24 14:31 Respiratory Rate 16 08/26/24 14:31 Blood Pressure 117/77 08/26/24 14:31 Pulse Oximetry 95 08/26/24 14:31 Oxygen Delivery Me thod Room Air 08/26/24 12:08 MDM - Male Medical Decision Making Patient feeling better after IV medications and fluids given here. His vital signs are stable. Blood work overall is nonactionable. UA does not appear infected. CT scan showing mild to moderate left hydroureteronephrosis due to a 5 mm distal ureter stone although CT scan said that it could be in the urinary bladder. Based on his symptoms, I suspect it is still in his distal ureter. Will recommend he continue his Flomax. Will give him pain and nausea medications he may use at home. Will have him follow-up with urology. Recommend pushing fluids/water and will have case management set him up with urology follow-up. Medical Records I reviewed the patient's medical records. Lab Data I reviewed the patient's lab results. 08/26/24 12:54 08/26/24 12:54 Radiology Impressions Abdomen/Pelvis CT 08/26/24 12:35 IMPRESSION: 1. Mild to moderate LEFT hydroureteronephrosis. The entire LEFT ureter is dilated with inflammatory changes in the wall. 5 mm calcification is either in the very distal ureter or extruded into the urinary bladder. 2. No additional LEFT renal calcifications. 3. Status post RIGHT hemicolectomy. Prior appendectomy. Laboratory Results WBC 12.06 10^3/uL (3.29-11.43) H 08/26/24 12:54 RBC 4.84 10^6/uL (3.85-5.65) 08/26/24 12:54 Hgb 14.20 g/dL (11.27-16.99) 08/26/24 12:54 Hct 43.4 % (37-53) 08/26/24 12:54 MCV 89.7 fl (82-101) 08/26/24 12:54 MCH 29.3 pg (27-33) 08/26/24 12:54 MCHC 32.7 g/dL (30-55) 08/26/24 12:54 RDW 12.9 % (12.1-15.1) 08/26/24 12:54 Plt Count 342 10^3/cmm (157-399) 08/26/24 12:54 MPV 8.6 fL (7.4-10.4) 08/26/24 12:54 Neut % (Auto) 70.3 % 08/26/24 12:54 Lymph % (Auto) 17.0 % 08/26/24 12:54 [place] % (Auto) 8.7 % 08/26/24 12:54 Eos % (Auto) 2.7 % 08/26/24 12:54 Baso % (Auto) 0.9 % 08/26/24 12:54 Neut # (Auto) 8.47 10^3/uL (1.8-7.7) H 08/26/24 12:54 Lymph # (Auto) 2.1 10^3/uL (0.8-4.8) 08/26/24 12:54 [place] # (Auto) 1.1 10^3/uL (0.2-0.9) H 08/26/24 12:54 Eos # (Auto) 0.3 10^3/uL (0.0-0.8) 08/26/24 12:54 Baso # (Auto) 0.1 10^3/uL (0.0-0.1) 08/26/24 12:54 Nucleated RBC % (auto) 0 % 08/26/24 12:54 Nucleated RBCs # 0.0 /100WBC 08/26/24 12:54 Sodium 138 mmol/L (136-145) 08/26/24 12:54 Potassium 4.1 mmol/L (3.5-5.1) 08/26/24 12:54 Chloride 101 mmol/L (98-107) 08/26/24 12:54 Carbon Dioxide 24 mmol/L (22-29) 08/26/24 12:54 Anion Gap 17.1 (5-19) 08/26/24 12:54 BUN 17 mg/dL (6-20) 08/26/24 12:54 Creatinine 1.1 mg/dL (0.7-1.2) 08/26/24 12:54 GFR Calculation 75.7 mL/min (90-130) L 08/26/24 12:54 Glucose 88 mg/dL (65-115) 08/26/24 12:54 Calculated Osmolality 287 mOsm/kg (285-295) 08/26/24 12:54 Calcium 9.4 mg/dL (8.5-10.5) 08/26/24 12:54 Total Bilirubin 0.3 mg/dL (0.15-1.2) 08/26/24 12:54 AST 17 U/L (0-40) 08/26/24 12: ALT 10 U/L (0-41) 08/26/24 12:54 Alkaline Phosphatase 87 U/L (40-130) 08/26/24 12:54 Total Protein 7.7 g/dL (6.6-8.7) 08/26/24 12:54 Albumin 4.5 g/dL (3.5-5.2) 08/26/24 12:54 Globulin 3.2 g/dL (1.3-4.6) 08/26/24 12:54 Urine Color Yellow (Yellow) 08/26/24 12:11 Urine Appearance Clear (CLEAR) 08/26/24 12:11 Urine pH 7.0 (5-7) 08/26/24 12:11 Ur Specific [place] 1.003 (1.005-1.030) L 08/26/24 12:11 Urine Protein 2+ (Negative) A 08/26/24 12:11 Urine Glucose (UA) Negative (Normal) 08/26/24 12:11 Urine Ketones Negative (Negative) 08/26/24 12:11 Urine Blood 2+ (Negative) A 08/26/24 12:11 Urine Nitrate Negative (Negative) 08/26/24 12:11 Urine Bilirubin Negative (Negative) 08/26/24 12:11 Urine Urobilinogen 0.2 mg/dL (Negative) 08/26/24 12:11 Ur Leukocyte Esterase Negative (Negative) 08/26/24 12:11 Urine RBC 0-2 /hpf (0-2) 08/26/24 12:11 Urine WBC 0-5 /hpf (0-5) 08/26/24 12:11 Ur Squamous Epith Cells 0-5 /hpf (0-5) 08/26/24 12:11 Amorphous Sediment Not Reportable 08/26/24 12:11 Urine Bacteria None seen /hpf (NONE) 08/26/24 12:11 Hyaline Casts 0-4 /lpf H 08/26/24 12:11 All radiology interpretation(s) finalized by discharge Discharge Plan Discharge Patient Disposition: Home Clinical Impression: Calculus of distal left ureter Condition: Stable Prescriptions: New hydrocodone-acetaminophen 5-325 mg tablet 1 tab PO Q6H PRN (Reason: pain) Qty: 14 0RF ondansetron 4 mg tablet,disintegrating 4 mg PO Q8H PRN (Reason: nausea and vomiting) Qty: 14 0RF No Action tamsulosin [Flomax] 0.4 mg capsule 0.4 mg PO DAILY Qty: 30 0RF ibuprofen [Advil] 200 mg Tablet 400 mg PO Q6H PRN (Reason: Pain) Discharge Orders: Discharge ED (Routine); Ordered 08/26/24 Ordered By: Leena Riley Patient Instructions: Ureteral Stones (ED), Opioid Safety, Pain Management Activity Restrictions/Additional Instructions: As we discussed, you need to push fluids (water) as much as possible to continue to help facilitate stone passage. Continue to strain your urine. You may bring the stone with you to your follow-up urology appointment. Case management should contact you shortly to help set you up with this appointment. You may use the pain and nausea medications as needed for significant discomfort. You may return to the emergency department for worsening pain, repetitive episodes of vomiting, fevers, or any other concerns you may have. Print Language: Italian Coding Level of Care Code ED Auto Service Writer for Ken Lin
[2024-08-26] MEDS: ketorolac 60 mg/2 mL INJ 30 MG IVP (12:58)
[2024-08-26] MEDS: sodium chloride 0.9% 1,000 ML 999 ML IV (12:59)
[2024-08-26] MEDS: ondansetron 2 mg/ML SDV 2 mL 4 MG IVP (12:59)
[2024-08-26 13:02] VITALS: BP 131/69; PULSE 92; RESP 16; O2SAT 100
[2024-08-26 13:07] LABS: Basophils # 0.1 10^3/uL (0.0-0.1); Basophils % 0.9 %; Eosinophils # 0.3 10^3/uL (0.0-0.8); Eosinophils % 2.7 %; Hematocrit 43.4 % (37-53); Lymphocytes # 2.1 10^3/uL (0.8-4.8); Mean Corpuscular HGB Conc 32.7 g/dL (30-55); Mean Corpuscular Hemoglobin 29.3 pg (27-33); Mean Corpuscular Volume 89.7 fl (82-101); Mean Platelet Volume 8.6 fL (7.4-10.4); Monocytes # 1.1 10^3/uL (0.2-0.9); Monocytes % 8.7 %; Neutrophils # 8.47 10^3/uL (1.8-7.7); Neutrophils % 70.3 %; Nucleated Red Blood Cells % 0 %; Platelet Count 342 10^3/cmm (157-399); Red Blood Count 4.84 10^6/uL (3.85-5.65); Red Cell Distribution Width 12.9 % (12.1-15.1); White Blood Count 12.06 10^3/uL (3.29-11.43)
[2024-08-26 13:29] LABS: Alanine Aminotransferase 10 U/L (0-41); Albumin Level 4.5 g/dL (3.5-5.2); Alkaline Phosphatase 87 U/L (40-130); Anion Gap 17.1 (5-19); Aspartate Amino Transferase 17 U/L (0-40); Blood Urea Nitrogen 17 mg/dL (6-20); Calcium 9.4 mg/dL (8.5-10.5); Carbon Dioxide 24 mmol/L (22-29); Chloride 101 mmol/L (98-107); Globulin 3.2 g/dL (1.3-4.6); Glomerular Filtration Rate 75.7 mL/min (90-130); Glucose 88 mg/dL (65-115); Osmolality Calculated 287 mOsm/kg (285-295); Potassium 4.1 mmol/L (3.5-5.1); Sodium 138 mmol/L (136-145); Total Bilirubin 0.3 mg/dL (0.15-1.2); Total Protein 7.7 g/dL (6.6-8.7)
[2024-08-26 13:55] VITALS: BP 119/81; PULSE 94; RESP 16; O2SAT 99
[2024-08-26 14:31] VITALS: BP 117/77; PULSE 98; RESP 16; O2SAT 95
--- NOTE | 2024-08-29 10:51 | DCPLANNER ---
faxed referral packet to urology [facility]
== END 2024-08-26 14:55 | disposition home or self-care (01) ==
PROVIDERS: Family Medicine; Emergency Provider Physician Assistant
DX: N20.1 Calculus of ureter (principal); Z87.891 Personal history of nicotine dependence; Z85.89 Personal history of malignant neoplasm of other organs and systems
CPT/HCPCS: 36415; 74176; 80053; 81001; 85025; 96361; 96374; 96375; 99285; J1885; J2405; J7030

== ENCOUNTER 2024-11-19 18:54 | Emergency (ER) | payer BC, MEDICAID, SELFPAY ==
--- OUTSIDE RECORDS SUMMARY | 2019-03-31 11:23 | XMS_ITS | Continuity of Care Document ---
Author Organization [facility] Address [id number] [address] Phone Care Team Providers Care Photographic Equipment Mechanic Name Role Phone Unavailable Unavailable Unavailable Advance Directives Directive Yes / No Effective Date File Name No Information Encounters Encounter Description Practice Location Reason(s) For Visit Diagnoses Date Provider Providers Copied on Encounter [facility], [id number], [id number], [place] tel:[phone] Vision F1 No Information 0 No Information Family History Family Member Type Diagnosis Age At Onset No Information Payers Payer name Insurance type Covered libertarian ID Authoriza bhavana(s) V May Vision CI [id number] Social History Type Description Quantity Date Captured [...]
[2024-11-19 19:02] VITALS: BP 148/89; PULSE 84; RESP 20; TEMP 36.7; O2SAT 100; BMI 26.2
--- NOTE | 2024-11-19 19:16 | XRR_ITS ---
PROCEDURE INFORMATION: Exam: XR Left Hip Exam date and time: 11/19/2024 7:23 PM Age: 38 years old Clinical indication: Injury or trauma; Fall; Blunt trauma (contusions or hematomas); Left; Hip; Additional info: L hip pain (posterior prox leg), R/O avulsion FX TECHNIQUE: Imaging protocol: Radiologic exam of the left hip. Views: 2 or 3 views hip with pelvis when performed. COMPARISON: CT kidney stone [id number] 08/26/2024 2:02 PM FINDINGS: Bones/joints: Unremarkable. No acute fracture. Soft tissues: Unremarkable. XR/XR hip LT 2-3V wo/w pel* [id number] IMPRESSION: No acute findings.
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
[2024-11-19] MEDS: oxyCODONE 5 mg IR Tab/Cap PO (19:25)
[2024-11-19 19:27] VITALS: BP 136/88; PULSE 75; RESP 15; O2SAT 99
[2024-11-19 19:52] VITALS: BP 126/89; PULSE 84; O2SAT 97
== END 2024-11-19 19:54 | disposition home or self-care (01) ==
PROVIDERS: Emergency Provider Emergency Medicine
DX: M79.605 Pain in left leg (principal); M25.552 Pain in left hip; Z87.891 Personal history of nicotine dependence; I10 Essential (primary) hypertension; Z85.89 Personal history of malignant neoplasm of other organs and systems
CPT/HCPCS: 73502; 96372; 99284; J1885; J9999

== ENCOUNTER 2024-11-24 19:46 | Emergency (ER) | payer BC, MEDICAID, SELFPAY ==
--- OUTSIDE RECORDS SUMMARY | 2019-03-31 11:23 | XMS_ITS | Continuity of Care Document ---
Author Organization [facility] Address [id number] [address] Phone Care Team Providers Care Coin Purse Assembler Name Role Phone Unavailable Unavailable Unavailable Advance Directives Directive Yes / No Effective Date File Name No Information Encounters Encounter Description Practice Location Reason(s) For Visit Diagnoses Date Provider Providers Copied on Encounter [facility], [id number], [id number], [place] tel:[phone] Vision F1 No Information 0 No Information Family History Family Member Type Diagnosis Age At Onset No Information Payers Payer name Insurance type Covered alliance party ID Authoriza bhavana(s) V May Vision CI [id number] Social History Type Description Quantity Date Captured Comments Sex Male Smoking Status No Information Chief Complaint And Reason For Visit No Information Reason For Referral Reason For Referral No Information History Of Present Illness Encounter Date Complaint History Of Prese nt Illness No Information Functional Status Date Functional Assessmen t No Information Instructions Date Instruction Additional Infor mation No Information Assessments Type Assessment Date No Information Patient Care Teams Name Effective Dates (start - stop) Status Members No Information
[2024-11-24 20:00] VITALS: BP 135/98; PULSE 85; RESP 16; TEMP 37.1; O2SAT 100; BMI 26.2
--- NOTE | 2024-11-24 20:32 | XRR_ITS ---
PROCEDURE INFORMATION: Exam: XR Left Femur Exam date and time: 11/24/2024 8:46 PM Age: 39 years old Clinical indication: Injury or trauma; Fall; Sprain or strain; Thigh or upper leg; Left TECHNIQUE: Imaging protocol: Radiologic exam of the left femur. Views: 2 views. COMPARISON: CR (PELVIS, ) 11/19/2024 7:23 PM FINDINGS: Bones/joints: Unremarkable. No acute fracture. Soft tissues: Unremarkable. XR/XR femur LT min 2V* [id number] IMPRESSION: No acute findings.
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
[2024-11-24] MEDS: orphenadrine 30 mg/mL Inj 2 mL 60 MG IM (22:18)
--- NOTE | 2024-11-25 16:18 | DCPLANNER ---
Message sent to clinic to establish PCP
== END 2024-11-24 22:43 | disposition home or self-care (01) ==
PROVIDERS: Emergency Provider Physician Assistant
DX: S76.312A Strain of muscle, fascia and tendon of the posterior muscle group at thigh level, left thigh, initial encounter (principal); V29.99XA Rider (driver) (passenger) of other motorcycle injured in unspecified traffic accident, initial encounter; I10 Essential (primary) hypertension; Z85.89 Personal history of malignant neoplasm of other organs and systems; Z87.891 Personal history of nicotine dependence
CPT/HCPCS: 29505; 73552; 96372; 99284; J1885; J2360

== ENCOUNTER → 2024-12-17 10:51 | Outpatient (BNVA) | payer BC, MEDICAID, SELFPAY | DX: I10 Essential (primary) hypertension (principal) | CPT/HCPCS: 80053; 85025 ==